=== PATIENT | male | born 1965 | race Caucasian/White ===

== ENCOUNTER 2019-02-28 14:45 | Inpatient (IN) | payer BC ==
[2019-02-28 15:26] LABS: #Basophils 0.1 thou/uL (0.0-0.2); #Eosinphils 0.3 thou/uL (0.0-0.7); #Lymphocytes 2.5 thou/uL (1.20-3.40); #Monocytes 0.5 thou/uL (0.11-0.59); #Neutrophils 7.2 thou/uL (1.40-6.50); %Basophils 0.5 % (0.0-1.0); %Eosinophils 2.5 % (0.0-10.0); %Lymphocytes 23.8 % (21.0-51.0); %Monocytes 4.9 % (0.0-10.0); %Neutrophils 68.2 % (42.0-75.0); Hemoglobin 14.4 g/dL (14.0-18.0); Mean Corpuscular HGB CONC 33.8 g/dL (32.0-36.0); Mean Corpuscular Hemoglobin 29.8 pg (27.0-31.0); Mean Corpuscular Volume 88.1 fL (78.0-98.0); Mean Platelet Volume 7.4 fL (7.4-10.4); Platelet Count 265 thou/uL (130-400); RBC Distribution Width 12.7 % (11.5-14.5); Red Blood Cell (RBC) Count 4.85 mill/uL (4.70-6.10); White Blood Cell (WBC) Count 10.5 thou/uL (4.8-10.8)
--- NOTE | 2019-02-28 15:40 | RAD ---
PORTABLE CHEST 1 VIEW: Date: 02/28/19 Time: 1446 hours HISTORY: Chest pain. FINDINGS/IMPRESSION: Comparison made with exam of 12/09/12. The heart size is borderline. The aorta is tortuous. The lungs are expanded without lobar consolidati on, pneumothoraces, radames pulmonary edema, or pleural effusions. POS: TPC
[2019-02-28 15:52] LABS: ALT (SGPT) 71 U/L (8-55); AST (SGOT) 52 U/L (5-34); Albumin 4.3 g/dL (3.5-5.0); Alkaline Phosphatase 79 U/L (40-150); Anion Gap 12 mmol/L (10-20); BUN (Urea Nitrogen) 12 mg/dL (8.4-25.7); Bilirubin, Total 0.8 mg/dL (0.2-1.2); CK (CPK) 121 U/L (30-200); Calc. Creatinine Clearance 0 mL/min (70-130); Calcium 8.9 mg/dL (7.8-10.44); Carbon Dioxide 26 mmol/L (22-29); Chloride 106 mmol/L (98-107); Estimated GFR-MDRD 67; Glucose 121 mg/dL (70-105); Lipase 26 U/L (8-78); Protein, Total 7.3 g/dL (6.0-8.3); Sodium 140 mmol/L (136-145)
[2019-02-28] MEDS ORDERED: Nitroglycerin 2% Ointment 1 INCH/1 GM Packet ONE (16:01)
[2019-02-28] MEDS ORDERED: Aspirin Chewable 81 MG TAB ONE (16:01)
[2019-02-28 16:17] LABS: CKMB 1.1 ng/mL (0-6.6)
[2019-02-28 16:31] LABS: PTT 32.8 SEC (22.9-36.1); Prothrombin Time 13.7 SEC (12.0-14.7)
[2019-02-28] MEDS ORDERED: Enoxaparin Sodium 60 MG/0.6 ML SYRINGE ONE (17:06)
[2019-02-28] MEDS ORDERED: Ondansetron ODT 4 MG TAB SL PRN (17:46)
[2019-02-28] MEDS ORDERED: Ondansetron PF 4 MG/2 ML Vial IVP PRN (17:46)
[2019-02-28 18:00] VITALS: BMI 36.1
[2019-02-28] MEDS ORDERED: Communication Order-Pharmacy FS SCH (18:00)
[2019-02-28] MEDS ORDERED: Diazepam 5 MG TAB PO SCH (18:00)
[2019-02-28] MEDS: Sodium Chloride 0.9% 1,000 ML IV SCH (18:24)
--- NOTE | 2019-02-28 18:38 | CON ---
DATE OF CONSULTATION: REASON FOR CONSULTATION: Chest pain. HISTORY OF PRESENT ILLNESS: Mr. Bright is a 54-year-old gentleman, who I saw and evaluated in the office yesterday. He states he was having a chest pain that has been ongoing for the last 8 days. The pain waxed and waned. His EKG suggested ischemia versus LVH. Recommended CK troponin yesterday. It was not drawn until today. CK-MB and troponin suggested an event likely occurring on Tuesday or Tuesday last week. His CK-MB was normal with mildly elevated troponin of 0.3. He is currently feeling well. Other concerns with Mr. Bright is a murmur of unknown etiology. He states he has had a chronic murmur in the past. He had a decreased carotid upstroke suggesting aortic stenosis. PAST MEDICAL HISTORY: Hypertension, aortic sclerosis? Stenosis, obstructive sleep apnea. MEDICATIONS: Include Zestril. PAST SURGICAL HISTORY: None. FAMILY HISTORY: Negative. SOCIAL HISTORY: Negative tobacco use. ALLERGIES: INCLUDE SNOW INHIBITOR THERAPY. REVIEW OF SYSTEMS: A 10-point review of systems is reviewed as above, otherwise negative. PHYSICAL EXAMINATION: GENERAL: Patient is a pleasant male, who is in no acute distress. The patient appears their stated age. VITAL SIGNS: Blood pressure 112/72, pulse 92, temperature afebrile. NEUROLOGIC: The patient is alert and oriented x3 with no focal neurologic deficits. HEENT: Sclerae without icterus. Mouth has moist mucous membranes with normal pallor. NECK: No JVD. Carotid upstroke brisk. No bruits bilaterally. LUNGS: Clear to auscultation with unlabored respirations. BACK: No scoliosis or kyphosis. CARDIAC: Regular rate and rhythm with normal S1 and S2. No S3 or S4 noted. No significant rubs, murmurs, thrills, or gallops noted throughout the precordium. PMI is not displaced. There is no parasternal heave. ABDOMEN: Soft, nontender, nondistended. No peritoneal signs present. No hepatosplenomegaly. No abnormal striae. EXTREMITIES: 2+ femoral and 2+ dorsalis pedis pulses. No cyanosis, clubbing, or edema. SKIN: No gross abnormalities. PERTINENT LABORATORY DATA: Hemoglobin 14.3. Troponin as above. AST/ALT 52/71. IMPRESSION: 1. Type 1 myocardial infarction. 2. Hypertension. RECOMMENDATIONS: Mr. Bright's event likely occurred on Tuesday of last week. His troponin is elevated with a normal CK-MB. At this point, he has no current symptoms. I would recommend Lovenox 1 mg/kg subcu q.12. We will keep n.p.o. after midnight and proceed with coronary angiography and possible PCI. I discussed the procedure in full detail with Mr. Bright. Risks included, but not limited . All questions were answered. He does have a murmur of unknown etiology. Recommended echo with doppler prior to angio to assess for aortic stenosis. That may change the course of action based on his coronary anatomy. I discussed drug-coated versus [id number] stent placement. There are no contraindications to proceed if needed. Job ID: [id number]
[2019-02-28 20:24] LABS: Troponin I 0.292 ng/mL (< 0.028)
[2019-02-28] MEDS ORDERED: Acetaminophen 325 MG TAB PO PRN (22:41)
[2019-02-28] MEDS ORDERED: Nitroglycerin 0.4 MG TAB (25 Tab Bottle) SL PRN (22:43)
[2019-03-01 00:47] LABS: Troponin I 0.325 ng/mL (< 0.028)
[2019-03-01] MEDS: Sodium Chloride 0.9% 1,000 ML IV SCH ×5 (02:11→22:49)
--- NOTE | 2019-03-01 03:09 | HP ---
CHIEF COMPLAINT: Chest pain. HISTORY OF PRESENT ILLNESS: This patient is a 54-year-old male who is followed by Dr. Parker who has been experiencing chest pain over the last 8-9 days. He describes these as sharp and central. They are intermittent and at most, lasts for 5-6 minutes. They are worse with activity and tend to resolve with rest. He is short of breath whenever these occur and he is slightly lightheaded. He has no nausea or radiation. REVIEW OF SYSTEMS: The patient reports that the pain is severe in the chest. Otherwise, all systems reviewed and all pertinent positives and negatives noted in the history of present illness. PAST MEDICAL HISTORY: Notable for some allergic rhinitis and obstructive sleep apnea, on CPAP. PAST SURGICAL HISTORY: None. FAMILY HISTORY: Mother and father both had pacemakers. SOCIAL HISTORY: The patient is a nonsmoker, but he does dip snuff. He is a nondrug user and only drinks minimally socially on the weekends. He is . He is full code. CURRENT MEDICATIONS: None. ALLERGIES: NONE. PHYSICAL EXAMINATION: VITAL SIGNS: Temperature 98.7, pulse 95, respirations 18, O2 saturation 95% on room air, BP 111/63. GENERAL APPEARANCE: Age-appropriate male, morbidly obese, in no distress. HEENT: PERRL. No OP lesions. Has cranials of snuff still in his mouth at this time, has a small oral airway and a large neck. HEART: Regular rate and rhythm. There is a 2/6 murmur at the left upper sternal border that is heard largely throughout the precordium. LUNGS: Clear to auscultation bilaterally with good chest wall expansion and air exchange. ABDOMEN: Soft, nontender, and nondistended. Positive bowel sounds. No masses. No organomegaly. EXTREMITIES: No cyanosis, clubbing, or edema. LABORATORY DATA: White count 10.5, hemoglobin 14.4, platelets 265. INR 1.0. Sodium 140, potassium 4.0, chloride 106, CO2 is 26, BUN 12, creatinine 1.14, glucose 121, AST 52, ALT 71. Troponin 0.324, subsequent 0.292. CK is normal. Lipase 26. Chest x-ray, heart is borderline size, otherwise unremarkable. IMPRESSION AND PLAN: 1. Chest pain with elevated troponin consistent with [id number] elevation myocardial infarction type 1. Cardiology has been consulted and plan to pursue heart catheterization in the morning. The patient's questions were answered regarding the plan and the procedure. 2. Obstructive sleep apnea, stable, chronic. We will need to continue CPAP usage. 3. Allergic rhinitis. Can resume his antihistamine after his procedure. 4. Angina as above. We will give p.r.n. sublingual nitroglycerin. We will also check a hemoglobin A1c and lipid panel in the morning to continue to risk stratify. The patient is going to be on telemetry and we will continue to monitor the troponins as well. 5. Elevated liver enzymes, likely related to fatty liver in this particular patient due to his obesity, borderline blood sugars. 6. The patient appears to have chronic kidney disease stage 2. His GFR on this particular occasion is 67. His previous two going back to 2017 were 88 and 85. We will need to continue to monitor over time. 7. Undiagnosed heart murmur. The patient has echo cardiogram pending. Job ID: [id number]
[2019-03-01] MEDS ORDERED: Nitroglycerin 100MG/250ML BOT 250 ML ONE (06:43)
[2019-03-01] MEDS ORDERED: Verapamil 5 MG/2 ML VIAL ONE (06:43)
[2019-03-01] MEDS ORDERED: Heparin 10,000 UNITS/1 ML VIAL ONE (06:43)
[2019-03-01] MEDS ORDERED: Fentanyl 100 MCG/2 ML VIAL ONE (07:43)
[2019-03-01] MEDS ORDERED: Midazolam HCl 2 mg/2 ml Vial ONE (07:43)
[2019-03-01] MEDS ORDERED: Bisacodyl 10 MG SUPP PR PRN ×2 (07:51→16:59)
[2019-03-01] MEDS ORDERED: Diabetic Tussin 200 MG/10 ML UDCUP PO PRN ×2 (07:51→17:00)
[2019-03-01] MEDS ORDERED: Artificial Tears 18 DROP/0.9 ML EA EYE PRN ×2 (07:51→16:59)
[2019-03-01] MEDS ORDERED: Cepastat Lozenges 1 LOZ PO PRN ×2 (07:51→17:00)
[2019-03-01] MEDS ORDERED: Senokot S 8.6-50 MG TAB PO PRN ×2 (07:51→17:03)
[2019-03-01] MEDS ORDERED: Labetalol HCl 100 MG/20 ML VIAL SLOW IVP PRN (07:51)
[2019-03-01] MEDS ORDERED: Sodium Chloride 0.65% Nasal 44 ML BOT EA NARE PRN ×2 (07:51→17:03)
[2019-03-01] MEDS ORDERED: Zolpidem Tartrate 5 MG TAB PO PRN ×2 (07:51→17:03)
[2019-03-01] MEDS ORDERED: Loratadine 10 MG TAB PO PRN ×2 (07:51→17:01)
[2019-03-01] MEDS ORDERED: Eucerin (Mineral Oil/Petrolatum,White) 30 gm Jar TOP PRN ×2 (07:51→17:01)
[2019-03-01] MEDS ORDERED: Ondansetron PF 4 MG/2 ML Vial IVP PRN ×2 (07:51→17:02)
[2019-03-01] MEDS ORDERED: Loperamide HCl 2 MG CAP PO PRN ×2 (07:51→17:01)
[2019-03-01] MEDS ORDERED: Ondansetron ODT 4 MG TAB PO PRN ×2 (07:51→17:02)
[2019-03-01] MEDS ORDERED: Furosemide 40 MG/4 ML VIAL ONE ×2 (08:13→12:14)
[2019-03-01] MEDS ORDERED: Aspirin 325 MG TAB PO SCH (09:00)
[2019-03-01] MEDS ORDERED: Aspirin Chewable 81 MG TAB PO SCH (09:00)
[2019-03-01] MEDS: Metoprolol Tartrate 25 MG TAB PO SCH ×2 (09:37→20:53)
[2019-03-01 09:46] LABS: Hemoglobin A1c 5.3 % (4.0-6.0)
[2019-03-01] MEDS ORDERED: Iopamidol 370 76% 100 ML VIAL ONE (09:52)
[2019-03-01 10:00] LABS: Cardiac Risk 4.7 (Less than 4.5)
--- NOTE | 2019-03-01 11:43 | PDOC.PN ---
- Subjective Encounter Start Date: 03/01/19 Encounter Start Time: 09:00 -: old records requested/rev Patient seen and examined. No new complaints. No overnight events he had cardiac cath this morning - Objective Resuscitation Status - Order Detail: 02/28/19 22:41 Resuscitation Status Routine Resuscitation Status: FULL: Full Resuscitation MAR Reviewed: Yes Vital Signs & Weight: Vital Signs (12 hours) Temp Pulse Resp BP Pulse Ox 03/01/19 10:31 85 20 03/01/19 08:30 98.2 F 97 26 H 123/60 92 L 03/01/19 04:05 97.4 F L 83 20 117/74 93 L Weight Weight 266 lb 14.4 oz Result Diagrams: 02/28/19 15:18 02/28/19 15:18 Radiology Reviewed by me: Yes EKG Reviewed by me: Yes Phys Exam - Physical Examination Constitutional: NAD HEENT: PERRLA, moist MMs, sclera anicteric Neck: no JVD, supple Respiratory: no wheezing, no rales, no rhonchi Cardiovascular: RRR, no rub SM at aortic area Gastrointestinal: soft, non-tender, no distention, positive bowel sounds Musculoskeletal: no edema, pulses present Neurological: non-focal, normal sensation, moves all 4 limbs Lymphatic: no nodes Psychiatric: normal affect, A&O x 3 Skin: no rash, normal turgor Dx/Plan (1) NSTEMI (non-ST elevated myocardial infarction) Code(s): I21.4 - NON-ST ELEVATION (NSTEMI) MYOCARDIAL INFARCTION Status: Acute (2) Allergic rhinitis Code(s): J30.9 - ALLERGIC RHINITIS, UNSPECIFIED Status: Chronic (3) YASSINE (obstructive sleep apnea) Code(s): G47.33 - OBSTRUCTIVE SLEEP APNEA (ADULT) (PEDIATRIC) Status: Chronic (4) Obesity (BMI 30-39.9) Code(s): E66.9 - OBESITY, UNSPECIFIED Status: Chronic (5) Cardiac murmur Code(s): R01.1 - CARDIAC MURMUR, UNSPECIFIED Status: Acute (6) CAD (coronary artery disease) Code(s): I25.10 - ATHSCL HEART DISEASE OF [place] CORONARY ARTERY W/O ANG PCTRS Status: Acute - Plan cont current plan of care, plan discussed w/ family * echo result pending, suspecting * cath showed CAD, no intervention done * medication reviewed as below * symptomatic treatment * discussed with family bedside. * continue aspirin, metoprolol and lipitor Review of Systems - Review of Systems ENT: negative: Ear Pain, Ear Discharge, Nose Pain, Nose Discharge, Nose Congestion, Mouth Pain, Mouth Swelling, Throat Pain, Throat Swelling, Other Respiratory: negative: Cough, Dry, Shortness of Breath, Hemoptysis, SOB with Excertion, Pleuritic Pain, Sputum, Wheezing Cardiovascular: negative: chest pain, palpitations, orthopnea, paroxysmal nocturnal dyspnea, edema, light headedness, other Gastrointestinal: negative: Nausea, Vomiting, Abdominal Pain, Diarrhea, Constipation, Melena, Hematochezia, Other Genitourinary: negative: Dysuria, Frequency, Incontinence, Hematuria, Retention , Other Musculoskeletal: negative: Neck Pain, Shoulder Pain, Arm Pain, Back Pain, Hand Pain, Leg Pain, Foot Pain, Other - Medications/Allergies Allergies/Adverse Reactions: Allergies Allergy/AdvReac Type Severity Reaction Status Date / Time No Known Allergies Allergy Verified 02/28/19 18:03 Medications: Current Medications Acetaminophen (Tylenol) 650 mg PO Q4H PRN PRN Reason: Headache/Fever/Mild Pain (1-3) Albuterol/Ipratropium (Duoneb) 3 ml NEB [id number] [facility] Last Admin: 03/01/19 10:31 Dose: 3 ml Artificial Tears (Tears Naturale) 2 drop EA EYE PRN PRN PRN Reason: Dry Eyes Aspirin (Aspirin Chewable) 81 mg PO DAILY [facility] Last Admin: 03/01/19 09:38 Dose: 81 mg Atorvastatin Calcium (Lipitor) 40 mg PO HS [facility] Bisacodyl (Dulcolax) 10 mg ID DAILYPRN PRN PRN Reason: Constipation Diazepam (Valium) 5 mg PO WILLCALL [facility] Stop: 03/01/19 18:01 Guaifenesin (Robitussin Sf) 200 mg PO Q4H PRN PRN Reason: Cough Sodium Chloride (Normal Saline 0.9%) 1,000 mls @ 100 mls/hr IV .Q10H [facility] Last Admin: 03/01/19 05:29 Dose: Not Given Labetalol HCl (Normodyne) 20 mg SLOW IVP Q4H PRN PRN Reason: SBP > 180 and HR >/= 70 Loperamide HCl (Imodium) 2 mg PO PRN PRN PRN Reason: Diarrhea/Loose Stools Loratadine (Claritin) 10 mg PO DAILYPRN PRN PRN Reason: Sinus Symptoms Metoprolol Tartrate (Lopressor) 12.5 mg PO BID [facility] Last Admin: 03/01/19 09:37 Dose: 12.5 mg Mineral Oil/White Petrolatum (Eucerin Cream) 0 gm TOP BIDPRN PRN PRN Reason: Dry Skin Nitroglycerin (Nitrostat) 0.4 mg SL Q5MIN PRN PRN Reason: Chest Pain Ondansetron HCl (Zofran Odt) 4 mg PO Q6H PRN PRN Reason: Nausea/Vomiting Ondansetron HCl (Zofran) 4 mg IVP Q6H PRN PRN Reason: Nausea/Vomiting Senna/Docusate Sodium (Senokot S) 2 tab PO BID PRN PRN Reason: Constipation Sodium Chloride ([place] Nasal Berry 0.65%) 0 ml EA NARE QIDPRN PRN PRN Reason: Nasal Congestion Sodium Chloride (Flush - Normal Saline) 10 ml IVF Q12HR [facility] Last Admin: 03/01/19 09:38 Dose: 10 ml Sodium Chloride (Flush - Normal Saline) 10 ml IVF PRN PRN PRN Reason: Saline Flush Throat Lozenges (Cepastat Lozenges) 1 shakir PO Q2H PRN PRN Reason: Sore Throat Zolpidem Tartrate (Ambien) 5 mg PO HSPRN PRN PRN Reason: Insomnia
[2019-03-01] MEDS ORDERED: Communication Order-Pharmacy FS ONE (16:50)
[2019-03-01] MEDS ORDERED: Nitroglycerin 0.4 MG TAB (25 Tab Bottle) SL PRN (16:58)
[2019-03-01] MEDS ORDERED: Acetaminophen 325 MG TAB PO PRN (16:58)
[2019-03-01] MEDS ORDERED: Diazepam 5 MG TAB PO SCH (17:00)
--- NOTE | 2019-03-01 19:14 | EKG ---
Test Reason : POST CATH Blood Pressure : / mmHG Vent. Rate : 087 BPM Atrial Rate : 087 BPM P-R Int : 174 ms QRS Dur : 104 ms QT Int : 386 ms P-R-T Axes : 035 043 147 degrees QTc Int : 464 ms Normal sinus rhythm Nonspecific ST-T changes Poor anterior R wave progression Prolonged QT Abnormal ECG When compared with ECG of 28-FEB-2019 14:53, (Unconfirmed) T wave inversion now evident in Inferior leads Confirmed by DR. Steven BASHIR (3) on 03/01/2019 7:13:44 PM Referred By: CARLENE Confirmed By:DR. Steven BASHIR
[2019-03-01] MEDS ORDERED: Atorvastatin Calcium 40 MG TAB PO SCH ×2 (21:00)
--- NOTE | 2019-03-01 22:14 | CON ---
DATE OF CONSULTATION: HISTORY OF PRESENT ILLNESS: This is a 54-year-old, seen by Dr. Parker a couple of days ago in the office with chest pain, dyspnea, and an aortic valve stenosis murmur. It was recommended at that time that he obtain some blood work before leaving for home; however, the patient left the office and went home. He returned the next day to visit his brother who was in the hospital and while walking out from the parking lot, became dyspneic with chest pain and went to the emergency room. There, his troponin was 0.3. This morning, a cardiac echo was done showing critical aortic valve stenosis with a peak gradient in the mid 70s and a mean gradient in the mid 50s. Left ventricular systolic function was reduced at about 40%. Cardiac catheterization was done and unfortunately film was not great quality due to his size, but it was felt that he had a mid LAD lesion. He had a nondominant right system with a left PDA that appeared to have stenosis, although it did not appear to be a large enough vessel to graft in this gentleman with a weight of about 270 pounds and LVH. Aortic valve was calcified on catheterization and heavily sclerotic with immobile leaflets on echo. PAST MEDICAL HISTORY: Includes obstructive sleep apnea for which he uses CPAP. He does not take any other medicines. Does not see a doctor regularly. SOCIAL HISTORY: Dips snuff. He drinks beer on the weekends. He is . He has a daughter, but she does not live with him and she has 3 children herself. As mentioned, he is a nonsmoker. PAST SURGICAL HISTORY: Negative. 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 MEDICATIONS: Prior to admission, none. ALLERGIES: NONE. REVIEW OF SYSTEMS: The patient gets short of breath with minimal exertion. This is a long-standing problem. Denies swelling in his legs. No previous history of a TIA or stroke. He does admit that he is very unreliable with taking medications. PHYSICAL EXAMINATION: GENERAL: He is alert, somewhat slow gentleman with a recorded height of 6 feet, a recorded weight of 266 pounds. NECK: No carotid bruits. Due to his size, neck veins could not be evaluated. LUNGS: Clear to auscultation anteriorly and he was breathing comfortably. CARDIAC: Distant heart sounds with 2/6 systolic murmur. ABDOMEN: Obese, nontender. EXTREMITIES: No peripheral edema. He had palpable dorsalis pedis pulses bilaterally. DISCUSSION: I have discussed the situation with the patient and Dr. Parker. Even though he is 54 years old, I do not think he is a candidate for mechanical valve due to noncompliance issues. I have explained the options with the patient including a pig valve, which would be a better choice for someone who is not reliable with taking medications, but likely will need replacement or percutaneous valve in the future. Discussed the possibility of percutaneous valve and stenting of his LAD. However, Dr. Parker is concerned that he may not be reliable enough even to take his aspirin and Plavix for 6 months. Given all these issues, we will plan on a coronary artery bypass graft to his LAD as well as aortic valve replacement with a bioprosthetic valve tomorrow and informed consent has been obtained. Job ID: [id number]
[2019-03-02] MEDS ORDERED: Diltiazem 125 MG in Sodium Chloride 0.9% 100 ML IVPB SCH (03:15)
[2019-03-02] MEDS ORDERED: CEFAZOLIN 2 GM in Premix Bag 1 BAG IVPB SCH (03:15)
[2019-03-02 05:20] LABS: ALT (SGPT) 44 U/L (8-55); AST (SGOT) 18 U/L (5-34); Albumin 3.9 g/dL (3.5-5.0); Alkaline Phosphatase 61 U/L (40-150); Anion Gap 14 mmol/L (10-20); BUN (Urea Nitrogen) 9 mg/dL (8.4-25.7); Bilirubin, Total 1.1 mg/dL (0.2-1.2); Calc. Creatinine Clearance 157 mL/min (70-130); Calcium 8.6 mg/dL (7.8-10.44); Carbon Dioxide 22 mmol/L (22-29); Chloride 108 mmol/L (98-107); Estimated GFR-MDRD 85; Globulin 2.9 g/dL (2.4-3.5); Glucose 103 mg/dL (70-105); Potassium 3.7 mmol/L (3.5-5.1); Protein, Total 6.8 g/dL (6.0-8.3); Sodium 140 mmol/L (136-145)
[2019-03-02] MEDS: Metoprolol Tartrate 25 MG TAB PO SCH (05:38)
[2019-03-02 06:20] LABS: #Eosinphils 0.7 thou/uL (0.0-0.7); #Lymphocytes 2.5 thou/uL (1.20-3.40); #Monocytes 0.6 thou/uL (0.11-0.59); #Neutrophils 7.9 thou/uL (1.40-6.50); %Basophils 0.3 % (0.0-1.0); %Eosinophils 5.9 % (0.0-10.0); %Monocytes 5.1 % (0.0-10.0); %Neutrophils 67.7 % (42.0-75.0); Hemoglobin 14.6 g/dL (14.0-18.0); Mean Corpuscular HGB CONC 33.5 g/dL (32.0-36.0); Mean Corpuscular Hemoglobin 29.2 pg (27.0-31.0); Mean Corpuscular Volume 87.1 fL (78.0-98.0); Mean Platelet Volume 7.8 fL (7.4-10.4); Platelet Count 258 thou/uL (130-400); RBC Distribution Width 12.8 % (11.5-14.5); White Blood Cell (WBC) Count 11.7 thou/uL (4.8-10.8)
[2019-03-02] MEDS ORDERED: Fentanyl 100 MCG/2 ML VIAL ONE (06:30)
[2019-03-02] MEDS ORDERED: Midazolam HCl 2 mg/2 ml Vial ONE (06:30)
[2019-03-02] MEDS ORDERED: Vecuronium 10 MG VIAL ONE ×2 (06:31→10:37)
[2019-03-02] MEDS ORDERED: Midazolam HCl 5 mg/5 ml Vial ONE (06:31)
[2019-03-02] MEDS ORDERED: Dexmedetomidine 200 MCG/2 ML VIAL ONE (06:31)
[2019-03-02] MEDS ORDERED: Heparin 10,000 UNITS/1 ML VIAL 30,000 UNITS in Sodium Chloride 0.9% 1,000 ML FS SCH (06:45)
[2019-03-02 09:23] LABS: Bilirubin Negative (Negative); Blood, Urine Negative (Negative); Clarity CLEAR (Clear); Glucose, Urine (Dipstick) Negative (Negative); Leukocyte Negative (Negative); Nitrite Negative (Negative); Protein, Urine (Dipstick) 100 mg/dL (Neg-Trace); Specific Gravity, Urine 1.031 (1.002-1.036); pH, Urine 6.5 (5.0-9.0)
[2019-03-02 09:26] LABS: Bacteria/HPF None Seen HPF (None Seen); Pathc Cast-AUWi Flag 1.08 (0-2.49); RBC/HPF 0-3 HPF (0-3); WBC/HPF 0-3 HPF (0-3)
[2019-03-02 09:36] LABS: Hyaline Casts/LPF NONE SEEN LPF (0-3 Hyaline)
[2019-03-02 09:37] LABS: Crystals/HPF 1+ AMORPH URATES HPF (Negative); Renal Epithelial 0-3 HPF (0-3); Transitional Epithelial 0-3 HPF (0-3)
[2019-03-02] MEDS ORDERED: Albumin 5% 500 ML ONE (09:51)
[2019-03-02] MEDS ORDERED: Protamine Sulfate 250 MG/25 ML VIAL ONE (10:37)
[2019-03-02] MEDS ORDERED: Dexamethasone 20 MG/5 ML VIAL ONE (10:37)
[2019-03-02] MEDS ORDERED: Cardioplegic Soln 1,000 ML BAG ONE (10:37)
[2019-03-02] MEDS ORDERED: Thrombin 5000 UNITS/5 ML VIAL ONE (10:37)
[2019-03-02] MEDS ORDERED: Nitroglycerin 50 MG/250 ML BOT ONE (10:37)
[2019-03-02] MEDS ORDERED: Mannitol 12.5 GM/50 ML ONE (10:37)
[2019-03-02] MEDS ORDERED: Papaverine 60 MG/2 ML VIAL ONE (10:37)
[2019-03-02] MEDS ORDERED: Esmolol 100 MG/10 ML VIAL ONE (10:37)
[2019-03-02] MEDS ORDERED: Ketorolac Tromethamine 30 MG/ML VIAL ONE (10:37)
[2019-03-02] MEDS ORDERED: Glycopyrrolate 0.2 MG/ML 5 ML SYRINGE ONE (10:37)
[2019-03-02] MEDS ORDERED: Heparin 5,000 UNITS/ML VIAL ONE (10:37)
[2019-03-02] MEDS ORDERED: Aminocaproic Acid 5 GM/20 ML VIAL ONE (10:37)
[2019-03-02] MEDS ORDERED: EPINEPHrine 1 MG/ML AMP ONE (10:37)
[2019-03-02] MEDS ORDERED: PHENYLEPHRINE-NS 100 MCG/ML 10 ML SYRINGE ONE (10:37)
[2019-03-02] MEDS ORDERED: Ondansetron PF 4 MG/2 ML Vial ONE (10:37)
[2019-03-02] MEDS ORDERED: Magnesium 5 GM/10 ML VIAL ONE (10:37)
[2019-03-02] MEDS ORDERED: Heparin 30,000 units/30 ml VIAL ONE (10:37)
[2019-03-02] MEDS ORDERED: Lidocaine 2% PF 100 mg/5 ml Syringe ONE (10:37)
[2019-03-02] MEDS ORDERED: Potassium Chloride 60 MEQ/30 ML VIAL ONE (10:37)
[2019-03-02] MEDS ORDERED: Norepinephrine 4 MG/4 ML VIAL ONE (10:37)
[2019-03-02] MEDS ORDERED: Sodium Bicarb 50 MEQ/50 ML VIAL ONE (10:37)
[2019-03-02] MEDS ORDERED: Calcium Chloride 1 GM/10 ML Abboject SYRINGE ONE (10:37)
[2019-03-02] MEDS ORDERED: Milrinone 10 MG/10 ML VIAL ONE (11:13)
--- NOTE | 2019-03-02 11:45 | PDOC.PN ---
- Subjective Encounter Start Date: 03/02/19 Encounter Start Time: 14:52 last night pt had afib/flutter and cardizem was given, rate controlled, BP dropped so cardizem was dced. s/p surgery and now on bipap - Objective Resuscitation Status - Order Detail: 02/28/19 22:41 Resuscitation Status Routine Resuscitation Status: FULL: Full Resuscitation MAR Reviewed: Yes Vital Signs & Weight: Vital Signs (12 hours) Temp Pulse Resp BP Pulse Ox 03/02/19 05:52 94 L 03/02/19 04:08 97.9 F 89 16 108/66 92 L Weight Weight 266 lb 14.4 oz I&O: 03/01/19 03/02/19 03/03/19 06:59 06:59 06:59 Intake Total 4740 Output Total 6600 Balance -1860 Result Diagrams: 03/02/19 13:27 03/02/19 13:27 Radiology Reviewed by me: Yes EKG Reviewed by me: Yes Phys Exam - Physical Examination Constitutional: NAD on bipap HEENT: moist MMs, sclera anicteric Neck: no JVD, supple Respiratory: no wheezing, no rales, no rhonchi chest tube in place Cardiovascular: RRR, no significant murmur, no rub Gastrointestinal: soft, non-tender, no distention Musculoskeletal: no edema, pulses present Neurological: non-focal Lymphatic: no nodes Psychiatric: normal affect Skin: no rash, normal turgor Dx/Plan (1) NSTEMI (non-ST elevated myocardial infarction) Code(s): I21.4 - NON-ST ELEVATION (NSTEMI) MYOCARDIAL INFARCTION Status: Acute Comment: 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 (2) Allergic rhinitis Code(s): J30.9 - ALLERGIC RHINITIS, UNSPECIFIED Status: Chronic (3) YASSINE (obstructive sleep apnea) Code(s): G47.33 - OBSTRUCTIVE SLEEP APNEA (ADULT) (PEDIATRIC) Status: Chronic (4) Obesity (BMI 30-39.9) Code(s): E66.9 - OBESITY, UNSPECIFIED Status: Chronic (5) Cardiac murmur Code(s): R01.1 - CARDIAC MURMUR, UNSPECIFIED Status: Acute Comment: likely due to (6) CAD (coronary artery disease) Code(s): I25.10 - ATHSCL HEART DISEASE OF [place] CORONARY ARTERY W/O ANG PCTRS Status: Acute - Plan cont current plan of care * planned for AVR and CABG as per CV surgery and cardiology * medication reviewed as below * symptomatic treatment. * after surgery, continue protocol treatment Review of Systems - Review of Systems ENT: negative: Ear Pain, Ear Discharge, Nose Pain, Nose Discharge, Nose Congestion, Mouth Pain, Mouth Swelling, Throat Pain, Throat Swelling, Other Respiratory: negative: Cough, Dry, Shortness of Breath, Hemoptysis, SOB with Excertion, Pleuritic Pain, Sputum, Wheezing Gastrointestinal: negative: Nausea, Vomiting, Abdominal Pain, Diarrhea, Constipation, Melena, Hematochezia, Other Genitourinary: negative: Dysuria, Frequency, Incontinence, Hematuria, Retention , Other Musculoskeletal: negative: Neck Pain, Shoulder Pain, Arm Pain, Back Pain, Hand Pain, Leg Pain, Foot Pain, Other - Medications/Allergies Allergies/Adverse Reactions: Allergies Allergy/AdvReac Type Severity Reaction Status Date / Time No Known Allergies Allergy Verified 02/28/19 18:03 Medications: Current Medications Vancomycin HCl 2 gm/ Sodium (Chloride) 500 mls @ 250 mls/hr IVPB ONCALL-OR BRYAN Cefazolin Sodium/Dextrose 2 gm (/ Device) 50 mls @ 100 mls/hr IVPB ONCALL-OR BRYAN Heparin Sodium (Porcine) 30, (000 units/ Sodium Chloride) 1,003 mls @ 0 mls/hr FS WILLCALL [facility] Stop: 03/02/19 12:00 Labetalol HCl (Normodyne) 20 mg SLOW IVP Q4H PRN PRN Reason: SBP > 180 and HR >/= 70 Metoprolol Tartrate (Lopressor) 12.5 mg PO BID [facility] Last Admin: 03/02/19 05:38 Dose: 12.5 mg
[2019-03-02] MEDS ORDERED: Nitroglycerin 50 MG/250 ML BOT 250 ML IVPB PRN (12:56)
[2019-03-02] MEDS ORDERED: Guaifenesin DM 100-10/5 ML UDCUP PO PRN (12:56)
[2019-03-02] MEDS ORDERED: Promethazine HCl 25 MG/ML VIAL IM PRN (12:56)
[2019-03-02] MEDS ORDERED: Bisacodyl 5 MG TAB PO PRN (12:56)
[2019-03-02] MEDS ORDERED: Hetastarch 6% 500 ML 500 ML IVPB PRN (12:56)
[2019-03-02] MEDS ORDERED: Mag-Al 1200 mg/1200 mg/30 ML UDCUP PO PRN (12:56)
[2019-03-02] MEDS ORDERED: Post-Op Insulin Drip Protocol IVPB ONE (12:56)
[2019-03-02] MEDS ORDERED: Fentanyl 100 MCG/2 ML VIAL SLOW IVP PRN (12:56)
[2019-03-02] MEDS ORDERED: Ondansetron PF 4 MG/2 ML Vial IVP PRN (12:56)
[2019-03-02] MEDS ORDERED: Bisacodyl 10 MG SUPP PR PRN (12:56)
[2019-03-02] MEDS ORDERED: Norepinephrine 8 MG/0.9% NS 250 ML IVPB PRN (12:56)
[2019-03-02] MEDS ORDERED: Morphine 2 MG/ML SYRINGE SLOW IVP PRN (12:56)
[2019-03-02] MEDS ORDERED: DOPamine 400 MG/D5W 250 ML 250 ML IVPB PRN (12:56)
[2019-03-02] MEDS ORDERED: Acetaminophen 325 MG TAB PO PRN (12:56)
[2019-03-02] MEDS ORDERED: niCARdipine HCl 25 MG in Sodium Chloride 0.9% 250 ML 240 ML IVPB PRN (12:56)
[2019-03-02] MEDS ORDERED: Potassium Chloride 20 MEQ/100 ML PREMIX BAG IVPB PRN (12:56)
[2019-03-02] MEDS ORDERED: HUMULIN R 100 UNITS in Sodium Chloride 0.9% 100 ML IVPB SCH (12:58)
[2019-03-02] MEDS ORDERED: Dextrose 50% Abboject 50 ML SYRINGE SLOW IVP PRN (12:58)
[2019-03-02] MEDS ORDERED: Insulin Regular 300 UNITS/3 ML VIAL SC PRN (12:58)
[2019-03-02] MEDS ORDERED: Dextrose 5% in Water 1,000 ML IV PRN (12:58)
[2019-03-02] MEDS ORDERED: Magnesium 2 GM/50 ML 2 GM in Premix Bag 1 BAG IVPB SCH (13:15)
[2019-03-02 13:32] LABS: Actual Bicarbonate (HCO3a) 21.2 mEq/L (22-28); Base Excess (BEa) -5.6 mEq/L (-2.0 to +3.0); CO2 Tension 46.3 mmHg (35.0-45.0); Calcium, Ionized 1.15 mmol/L (1.12-1.30); Carboxyhemoglobin (COHb) 1.4 gm% (0.0-3.0); Hemoglobin (Hb) 13.7 g/dL (14.0-18.0); Potassium - ABG Lab 4.27 mmol/L (3.70-5.30); pH, Arterial 7.28 (7.35-7.45)
--- NOTE | 2019-03-02 13:32 | RAD ---
EXAM: Portable supine chest: INDICATIONS: Postop sternotomy COMPARISON: 02/28/2019 FINDINGS: Cardiomegaly. Mild vascular congestion. Small effusions. Postop sternotomy wires. Central l ine overlies right atrium. IMPRESSION: Cardiomegaly with mild vascular congestion
[2019-03-02 13:34] LABS: Puncture Site LINE
[2019-03-02 13:35] LABS: ALV-art Gradient 281.925 (0-20)
[2019-03-02 13:40] LABS: INR-International Normal Ratio 1.5; PTT 31.7 SEC (22.9-36.1); Prothrombin Time 17.9 SEC (12.0-14.7)
[2019-03-02 13:41] LABS: Hemoglobin 13.4 g/dL (14.0-18.0); Mean Corpuscular HGB CONC 33.5 g/dL (32.0-36.0); Mean Corpuscular Hemoglobin 29.7 pg (27.0-31.0); Mean Corpuscular Volume 88.6 fL (78.0-98.0); Mean Platelet Volume 7.5 fL (7.4-10.4); Platelet Count 256 thou/uL (130-400); RBC Distribution Width 12.5 % (11.5-14.5); White Blood Cell (WBC) Count 31.3 thou/uL (4.8-10.8)
[2019-03-02 13:55] LABS: Anion Gap 11 mmol/L (10-20); BUN (Urea Nitrogen) 12 mg/dL (8.4-25.7); Calc. Creatinine Clearance 146 mL/min (70-130); Calcium 8.4 mg/dL (7.8-10.44); Carbon Dioxide 22 mmol/L (22-29); Chloride 113 mmol/L (98-107); Estimated GFR-MDRD 78; Glucose 171 mg/dL (70-105); Potassium 4.4 mmol/L (3.5-5.1); Sodium 142 mmol/L (136-145)
[2019-03-02 14:10] LABS: Band 35 % (5-11); Lymphocytes 6 % (21-51); MDiff Complete? YES; Monocytes 4 % (0-10); Neutrophil 55 % (42-75); Platelet Morphology Comment Appears Adequate; Polychromasia SLIGHT = 2-3 cells (100X) (0-2/hpf)
[2019-03-02] MEDS: Sodium Chloride 0.9% 1,000 ML IV SCH ×2 (14:19→20:42)
[2019-03-02] MEDS: CEFAZOLIN 2 GM in Premix Bag 1 BAG IVPB SCH ×2 (14:27→23:31)
[2019-03-02] MEDS: Fentanyl 100 MCG/2 ML VIAL SLOW IVP PRN ×2 (15:47→20:32)
[2019-03-02] MEDS: Ketorolac Tromethamine 30 MG/ML VIAL IVP SCH ×2 (17:29→23:31)
[2019-03-02 17:40] LABS: Hemoglobin 13.2 g/dL (14.0-18.0)
[2019-03-02 18:14] LABS: Potassium 4.5 mmol/L (3.5-5.1)
[2019-03-02] MEDS: Atorvastatin Calcium 10 MG TAB PO SCH (20:18)
[2019-03-02] MEDS: Vancomycin HCl 1 GM in Premix Bag 1 BAG IVPB SCH (20:18)
[2019-03-02] MEDS: Famotidine/PF 20 mg/2ml Vial SLOW IVP SCH (20:18)
[2019-03-03] MEDS: Fentanyl 100 MCG/2 ML VIAL SLOW IVP PRN ×4 (02:25→10:54)
[2019-03-03 04:49] LABS: #Lymphocytes 1.6 thou/uL (1.20-3.40); #Monocytes 1.1 thou/uL (0.11-0.59); %Basophils 0.1 % (0.0-1.0); %Eosinophils 0.3 % (0.0-10.0); %Lymphocytes 10.8 % (21.0-51.0); %Monocytes 7.4 % (0.0-10.0); %Neutrophils 81.4 % (42.0-75.0); Hemoglobin 11.8 g/dL (14.0-18.0); Mean Corpuscular Hemoglobin 29.5 pg (27.0-31.0); Mean Corpuscular Volume 89.4 fL (78.0-98.0); Mean Platelet Volume 8.1 fL (7.4-10.4); Platelet Count 203 thou/uL (130-400); RBC Distribution Width 12.6 % (11.5-14.5); White Blood Cell (WBC) Count 14.8 thou/uL (4.8-10.8)
[2019-03-03 05:04] LABS: Anion Gap 11 mmol/L (10-20); BUN (Urea Nitrogen) 12 mg/dL (8.4-25.7); Calc. Creatinine Clearance 183 mL/min (70-130); Calcium 7.8 mg/dL (7.8-10.44); Carbon Dioxide 23 mmol/L (22-29); Chloride 110 mmol/L (98-107); Estimated GFR-MDRD Greater than 90; Glucose 117 mg/dL (70-105); Potassium 4.4 mmol/L (3.5-5.1); Sodium 140 mmol/L (136-145)
[2019-03-03] MEDS: Ketorolac Tromethamine 30 MG/ML VIAL IVP SCH ×4 (05:07→23:12)
[2019-03-03] MEDS: CEFAZOLIN 2 GM in Premix Bag 1 BAG IVPB SCH (06:21)
[2019-03-03] MEDS ORDERED: Furosemide 20 MG/2 ML VIAL SLOW IVP SCH (07:45)
[2019-03-03] MEDS: Vancomycin HCl 1 GM in Premix Bag 1 BAG IVPB SCH (07:51)
--- NOTE | 2019-03-03 08:14 | RAD ---
PORTABLE CHEST: HISTORY: Postop sternotomy followup. COMPARISON: 03/02/2019. FINDINGS: Cardiomegaly. Postop sternotomy change. Central line has tip overlying the right atrium. The lungs appear well aerated and clear. IMPRESSION: Cardiomegaly. No acute lung process. POS: OFF
[2019-03-03] MEDS: Aspirin 325 MG TAB PO SCH (08:43)
[2019-03-03] MEDS: Famotidine/PF 20 mg/2ml Vial SLOW IVP SCH ×2 (08:43→20:35)
[2019-03-03] MEDS: HYDROcodone/Acetaminophen 5/325 mg Tablet PO PRN ×2 (09:16→23:14)
--- NOTE | 2019-03-03 09:23 | CON ---
DATE OF CONSULTATION: 03/03/2019 CONSULTING PHYSICIAN: [facility]. REASON FOR CONSULTATION: Postoperative respiratory failure. HISTORY OF PRESENT ILLNESS: The patient is a 54-year-old male, who came into the hospital several days ago with chest pain and a murmur consistent with aortic stenosis. He underwent one-vessel CABG with aortic valve replacement yesterday by Dr. Adams. Afterwards, he has required BiPAP. He does wear BiPAP at home for management of his YASSINE. Currently, he does not have any complaints of shortness of breath and wants to go home. PAST MEDICAL HISTORY: YASSINE requiring CPAP. PAST SURGICAL HISTORY: None prior to yesterday. SOCIAL HISTORY: Dips snuff. Drinks beer on the weekends. Does not smoke. MEDICATIONS: Prior to admission, none. ALLERGIES: NONE. REVIEW OF SYSTEMS: Twelve-point review of systems is otherwise negative. PHYSICAL EXAMINATION: VITAL SIGNS: Temperature 98.8, pulse 80, blood pressure 124/79, and O2 saturation 96%. GENERAL: He is awake, alert, in no distress. HEENT: Unremarkable. NECK: No JVD. LUNGS: Clear, but diminished breath sounds throughout. CARDIAC: S1 and S2. Regular. ABDOMEN: Soft, nontender. He has mediastinal tubes protruding in midthoracic area. EXTREMITIES: No clubbing, cyanosis, or edema. NEUROLOGIC: Grossly intact throughout. LABORATORY DATA: White blood cell count 14.8, hematocrit 35.8, and platelet count 203. Sodium 140, potassium 4.4, BUN 12, creatinine 0.8, and glucose 117. ASSESSMENT: 1. Postop coronary artery bypass grafting. 2. Obstructive sleep apnea. PLAN: 1. Continue BiPAP as needed. 2. Otherwise, management per CV Surgery. I will be happy to follow with you. Job ID: [id number]
--- NOTE | 2019-03-03 09:57 | EKG ---
Test Reason : Blood Pressure : / mmHG Vent. Rate : 084 BPM Atrial Rate : 084 BPM P-R Int : 182 ms QRS Dur : 104 ms QT Int : 392 ms P-R-T Axes : 037 013 095 degrees QTc Int : 463 ms Normal sinus rhythm Possible Left atrial enlargement Anterior infarct , age undetermined Nonspecific ST-T changes Abnormal ECG When compared with ECG of 01-MAR-2019 09:11, Anterior infarct is now Present T wave inversion no longer evident in Inferior leads Nonspecific T wave abnormality has replaced inverted T waves in Lateral leads Confirmed by DR. Steven BASHIR (3) on 03/03/2019 9:57:31 AM Referred By: CARLENE Confirmed By:DR. Steven BASHIR
--- NOTE | 2019-03-03 11:01 | EKG ---
Test Reason : POST CABG Blood Pressure : / mmHG Vent. Rate : 089 BPM Atrial Rate : 089 BPM P-R Int : 160 ms QRS Dur : 096 ms QT Int : 420 ms P-R-T Axes : 043 032 057 degrees QTc Int : 511 ms Normal sinus rhythm Possible Left atrial enlargement Nonspecific ST abnormality Prolonged QT Abnormal ECG When compared with ECG of 02-MAR-2019 04:30, (Unconfirmed) ST now depressed in Lateral leads Confirmed by DR. Steven BASHIR (3) on 03/03/2019 11:01:05 AM Referred By: JUAN Confirmed By:DR. Steven BASHIR
--- NOTE | 2019-03-03 11:12 | PDOC.PN ---
- Subjective Encounter Start Date: 03/03/19 Encounter Start Time: 10:00 Patient seen and examined. No new complaints. No overnight events pt has surgical site pain - Objective Resuscitation Status - Order Detail: 02/28/19 22:41 Resuscitation Status Routine Resuscitation Status: FULL: Full Resuscitation MAR Reviewed: Yes Vital Signs & Weight: Vital Signs (12 hours) Pulse Resp Pulse Ox 03/03/19 08:31 94 L 03/03/19 08:30 88 28 H 03/03/19 07:27 97 03/03/19 01:56 79 94 L 03/03/19 01:54 94 L Weight Weight 272 lb 0.807 oz Most Recent Monitor Data Heart Rate from ECG 94 NIBP 129/70 NIBP BP-Mean 89 Respiration from ECG 30 SpO2 93 I&O: 03/02/19 03/03/19 03/04/19 06:59 06:59 06:59 Intake Total 4740 3743 120 Output Total 6600 1245 525 Balance -1860 2498 -405 Result Diagrams: 03/03/19 03:35 03/03/19 03:35 Additional Labs: Accuchecks 03/03/19 03/03/19 03/03/19 06:34 05:19 03:38 POC Glucose 100 99 120 H 03/03/19 03/03/19 03/02/19 01:39 00:32 23:35 POC Glucose 110 117 H 123 H 03/02/19 03/02/19 03/02/19 22:37 21:31 20:16 POC Glucose 137 H 146 H 132 H 03/02/19 03/02/19 03/02/19 17:28 17:00 15:39 POC Glucose 156 H 170 H 156 H Radiology Reviewed by me: Yes (chest xray reviewed) EKG Reviewed by me: Yes Phys Exam - Physical Examination Constitutional: NAD HEENT: PERRLA, moist MMs, sclera anicteric Neck: no JVD, supple Respiratory: no wheezing, no rales, no rhonchi Cardiovascular: RRR, no rub Gastrointestinal: soft, non-tender, no distention, positive bowel sounds Musculoskeletal: no edema, pulses present Neurological: moves all 4 limbs Lymphatic: no nodes Psychiatric: normal affect Skin: no rash, normal turgor Dx/Plan (1) NSTEMI (non-ST elevated myocardial infarction) Code(s): I21.4 - NON-ST ELEVATION (NSTEMI) MYOCARDIAL INFARCTION Status: Acute Comment: 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 (2) Allergic rhinitis Code(s): J30.9 - ALLERGIC RHINITIS, UNSPECIFIED Status: Chronic (3) YASSINE (obstructive sleep apnea) Code(s): G47.33 - OBSTRUCTIVE SLEEP APNEA (ADULT) (PEDIATRIC) Status: Chronic (4) Obesity (BMI 30-39.9) Code(s): E66.9 - OBESITY, UNSPECIFIED Status: Chronic (5) Cardiac murmur Code(s): R01.1 - CARDIAC MURMUR, UNSPECIFIED Status: Acute Comment: likely due to (6) CAD (coronary artery disease) Code(s): I25.10 - ATHSCL HEART DISEASE OF [place] CORONARY ARTERY W/O ANG PCTRS Status: Acute (7) S/P CABG (coronary artery bypass graft) Code(s): Z95.1 - PRESENCE OF AORTOCORONARY BYPASS GRAFT Status: Acute (8) S/P aortic valve replacement Code(s): Z95.2 - PRESENCE OF PROSTHETIC HEART VALVE Status: Acute - Plan cont current plan of care * medication reviewed as below * symptomatic treatment * continue post operative care as per surgeon. Review of Systems - Review of Systems Respiratory: negative: Cough, Dry, Shortness of Breath, Hemoptysis, SOB with Excertion, Pleuritic Pain, Sputum, Wheezing Cardiovascular: negative: chest pain, palpitations, orthopnea, paroxysmal nocturnal dyspnea, edema, light headedness, other Gastrointestinal: negative: Nausea, Vomiting, Abdominal Pain, Diarrhea, Constipation, Melena, Hematochezia, Other Genitourinary: negative: Dysuria, Frequency, Incontinence, Hematuria, Retention , Other Musculoskeletal: negative: Neck Pain, Shoulder Pain, Arm Pain, Back Pain, Hand Pain, Leg Pain, Foot Pain, Other Skin: negative: Rash, Lesions, Domingo, Bruising, Other - Medications/Allergies Allergies/Adverse Reactions: Allergies Allergy/AdvReac Type Severity Reaction Status Date / Time No Known Allergies Allergy Verified 02/28/19 18:03 Medications: Current Medications Acetaminophen (Tylenol) 650 mg PO Q6H PRN PRN Reason: Headache/Fever Or Mild Pain Hydrocodone Bitart/Acetaminophen ([place] 5/325) 1 tab PO Q4H PRN PRN Reason: Moderate Pain (4-6) Hydrocodone Bitart/Acetaminophen ([place] 5/325) 2 tab PO Q4H PRN PRN Reason: Severe Pain (7-10) Last Admin: 03/03/19 09:16 Dose: 2 tab Al Hydroxide/Mg Hydroxide (Maalox) 30 ml PO Q4H PRN PRN Reason: Indigestion Albumin Human (Albumin 5%) 12.5 gm IVPB Q6H PRN PRN Reason: To Maintain SBP> 90 mmHG Stop: 03/03/19 12:57 Albumin Human (Albumin 5%) 25 gm IVPB Q6H PRN PRN Reason: To Maintain SBP > 90 mmHG Stop: 03/03/19 12:57 Albuterol/Ipratropium (Duoneb) 3 ml NEB [id number] PRN PRN Reason: SHORTNESS OF BREATH Albuterol/Ipratropium (Duoneb) 3 ml NEB [id number] [facility] Last Admin: 03/03/19 08:30 Dose: 3 ml Aspirin (Aspirin) 325 mg PO DAILY [facility] Last Admin: 03/03/19 08:43 Dose: 325 mg Atorvastatin Calcium (Lipitor) 10 mg PO HS [facility] Last Admin: 03/02/19 20:18 Dose: 10 mg Bisacodyl (Dulcolax) 10 mg PO Q12H PRN PRN Reason: Constipation Bisacodyl (Dulcolax) 10 mg OR Q12H PRN PRN Reason: Constipation Dextrose/Water (Dextrose 50%) 25 gm SLOW IVP PRN PRN PRN Reason: PER HYPOGLYCEMIC PROTOCOL Enoxaparin Sodium (Lovenox) 40 mg SC 2100 BRYAN Famotidine (Pepcid) 20 mg SLOW IVP Q12HR [facility] Last Admin: 03/03/19 08:43 Dose: 20 mg Fentanyl (Sublimaze) 25 mcg SLOW IVP Q2H PRN PRN Reason: Moderate Pain (4-6) Stop: 03/04/19 12:46 Fentanyl (Sublimaze) 50 mcg SLOW IVP Q2H PRN PRN Reason: Severe Pain (7-10) Stop: 03/04/19 12:46 Last Admin: 03/03/19 10:54 Dose: 50 mcg Glucagon (Glucagon) 1 mg SC PRN PRN PRN Reason: PER HYPOGLYCEMIC PROTOCOL Guaifenesin/Dextromethorphan (Robitussin Dm) 15 ml PO Q4H PRN PRN Reason: Cough Hydralazine HCl (Apresoline) 10 mg SLOW IVP Q6H PRN PRN Reason: To Maintain SBP< 140mmHG Dopamine HCl/Dextrose (Dopamine 400 Mg/D5w 250 Ml) 250 mls @ 0 mls/hr IVPB PRN PRN; Protocol PRN Reason: To maintain SBP > 90 mmHG Hetastarch/Sodium Chloride (Hespan) 500 mls @ 0 mls/hr IVPB PRN PRN PRN Reason: To Maintain SBP > 90mmHg Stop: 03/03/19 12:46 Norepinephrine Bitartrate (Levophed) 250 mls @ 0 mls/hr IVPB PRN PRN; Protocol PRN Reason: To maintain SBP > 90 mmHG Nicardipine HCl 25 mg/ Sodium (Chloride) 250 mls @ 0 mls/hr IVPB INF PRN; Protocol PRN Reason: To Maintain SBP< 140mmHG Nitroglycerin/Dextrose (Nitroglycerin 50 Mg/250 Ml Bot) 250 mls @ 0 mls/hr IVPB PRN PRN; Protocol PRN Reason: To Maintain SBP< 140mmHG Insulin Human Regular 100 (units/ Sodium Chloride) 101 mls @ 0 mls/hr IVPB INF BRYAN; Protocol Last Admin: 03/02/19 14:19 Dose: 101 mls Dextrose/Water (D5w) 1,000 mls @ 0 mls/hr IV INF PRN PRN Reason: PRN HYPOGLYCEMIC PROTOCOL Insulin Human Regular (Humulin R) 0 units SC Q4H PRN; Protocol PRN Reason: POST OP SLIDING SCALE Ketorolac Tromethamine (Toradol) 15 mg IVP Q6HR [facility] Stop: 03/05/19 18:01 Last Admin: 03/03/19 05:07 Dose: 15 mg Morphine Sulfate (Morphine) 2 mg SLOW IVP Q15MIN PRN PRN Reason: Severe Pain (7-10) Ondansetron HCl (Zofran) 4 mg IVP Q6H PRN PRN Reason: Nausea/Vomiting Potassium Chloride (Kcl) 20 meq IVPB PRN PRN PRN Reason: K level </= 4.0 Promethazine HCl (Phenergan) 6.25 mg IM Q4H PRN PRN Reason: Nausea/Vomiting Sodium Chloride (Flush - Normal Saline) 10 ml IVF Q12HR BRYAN Last Admin: 03/03/19 08:44 Dose: 10 ml Sodium Chloride (Flush - Normal Saline) 10 ml IVF PRN PRN PRN Reason: Saline Flush
--- NOTE | 2019-03-03 12:15 | PDOC.CTH ---
Cardiology Progress Note - Subjective No new issues. Sore chest. - Objective Vital Signs Pulse Resp Pulse Ox 03/03/19 12:00 93 L 03/03/19 08:31 94 L 03/03/19 08:30 88 28 H 03/03/19 07:27 97 03/03/19 01:56 79 94 L 03/03/19 01:54 94 L Weight 272 lb 0.807 oz 03/02/19 03/03/19 03/04/19 06:59 06:59 06:59 Intake Total 4740 3743 120 Output Total 6600 1245 745 Balance -1860 5958 -602 - Physical Examination General/Neuro: alert & oriented x3, NAD Neck: no JVD present Lungs: unlabored respirations Heart: RRR Abdomen: NT/ND Extremities: + edema B (1+) - Telemetry Telemetry Rhythm: NSR - Labs Result Diagrams: 03/03/19 03:35 03/03/19 03:35 Troponin/CKMB CK-MB (CK-2) 1.1 ng/mL (0-6.6) 02/28/19 15:18 Troponin I 0.325 ng/mL (< 0.028) H* 03/01/19 00:07 - Assessment/Plan 1. NSTEMI 2. S/P CABG NEGRON to LAD. 3. Aortic stenosis s/p AVR PLAN: - Aspirin/statin for life. - PT once tolerated. - BB and ACEI when BP allows.
[2019-03-03] MEDS: Amiodarone 450 MG, Admixture Fee 1 EACH in Dextrose 5% in Water 250 ML IVPB SCH ×2 (14:49→20:36)
[2019-03-03] MEDS: Atorvastatin Calcium 10 MG TAB PO SCH (20:34)
[2019-03-03] MEDS: Enoxaparin Sodium 40 MG/0.4 ML SYRINGE SC SCH (20:35)
[2019-03-04] MEDS ORDERED: Digoxin 0.5 MG/2 ML AMP SLOW IVP SCH ×2 (00:15→08:30)
[2019-03-04] MEDS ORDERED: Furosemide 40 MG/4 ML VIAL SLOW IVP SCH (00:15)
[2019-03-04 04:45] LABS: #Eosinphils 0.3 thou/uL (0.0-0.7); #Lymphocytes 2.8 thou/uL (1.20-3.40); #Monocytes 1.2 thou/uL (0.11-0.59); #Neutrophils 9.4 thou/uL (1.40-6.50); %Basophils 0.4 % (0.0-1.0); %Eosinophils 2.4 % (0.0-10.0); %Lymphocytes 20.5 % (21.0-51.0); %Monocytes 8.7 % (0.0-10.0); %Neutrophils 68.1 % (42.0-75.0); Hemoglobin 10.7 g/dL (14.0-18.0); Mean Corpuscular HGB CONC 32.8 g/dL (32.0-36.0); Mean Corpuscular Hemoglobin 29.3 pg (27.0-31.0); Mean Corpuscular Volume 89.4 fL (78.0-98.0); Mean Platelet Volume 7.7 fL (7.4-10.4); Platelet Count 187 thou/uL (130-400); RBC Distribution Width 12.6 % (11.5-14.5); Red Blood Cell (RBC) Count 3.67 mill/uL (4.70-6.10); White Blood Cell (WBC) Count 13.8 thou/uL (4.8-10.8)
[2019-03-04 05:04] LABS: Anion Gap 10 mmol/L (10-20); BUN (Urea Nitrogen) 14 mg/dL (8.4-25.7); Calc. Creatinine Clearance 152 mL/min (70-130); Calcium 7.8 mg/dL (7.8-10.44); Carbon Dioxide 27 mmol/L (22-29); Chloride 105 mmol/L (98-107); Estimated GFR-MDRD 80; Glucose 105 mg/dL (70-105); Potassium 3.9 mmol/L (3.5-5.1); Sodium 138 mmol/L (136-145)
[2019-03-04] MEDS: Ketorolac Tromethamine 30 MG/ML VIAL IVP SCH ×4 (06:00→23:07)
[2019-03-04] MEDS: Amiodarone 450 MG, Admixture Fee 1 EACH in Dextrose 5% in Water 250 ML IVPB SCH ×2 (06:35→21:17)
--- NOTE | 2019-03-04 07:59 | RAD ---
PORTABLE CHEST: HISTORY: Postop sternotomy. COMPARISON: 03/03/2019. FINDINGS: Cardiomegaly. Postop sternotomy wires. Mild vascular engorgement. Left basilar opacification obscu ring the left hemidiaphragm. Lungs are otherwise aerated and clear. IMPRESSION: No interval change from yesterday. POS: OFF
[2019-03-04] MEDS: HYDROcodone/Acetaminophen 5/325 mg Tablet PO PRN ×2 (08:55→18:42)
[2019-03-04] MEDS: Famotidine/PF 20 mg/2ml Vial SLOW IVP SCH ×2 (08:57→21:16)
[2019-03-04] MEDS: Aspirin 325 MG TAB PO SCH (08:59)
--- NOTE | 2019-03-04 09:21 | PRG ---
DATE OF SERVICE: 03/04/2019 SUBJECTIVE: He got in atrial fibrillation with rapid ventricular response. He is not having any breathing difficulty. He us using CPAP at night for YASSINE. OBJECTIVE: VITAL SIGNS: On exam, temperature is 99.3, pulse 133, blood pressure 126/47, and O2 saturation 93%. 24-hour intake 2128, output 2305. HEENT: Unremarkable. NECK: No JVD. LUNGS: Clear anteriorly. CARDIAC: S1 and S2, irregularly irregular and tachycardic. ABDOMEN: Soft, obese, and nontender. EXTREMITIES: No clubbing, cyanosis, or edema. LABORATORY DATA: White blood cell count 13.8, hematocrit 32.8, and platelet count 187. Sodium 138, potassium 3.9, chloride 105, CO2 of 27, BUN 14, creatinine 0.8, and glucose 105. IMAGING DATA: Chest x-ray is about the same. ASSESSMENT: 1. Postop coronary artery bypass grafting. 2. Obstructive sleep apnea. 3. Atrial fibrillation with rapid ventricular response. PLAN: There is some question whether the nebulization treatments might be aggravating the AFib. I think that those can be stopped. He will continue CPAP for the YASSINE. Cardiology is managing the AFib. Job ID: [id number]
--- NOTE | 2019-03-04 10:45 | PDOC.PN ---
- Subjective Encounter Start Date: 03/04/19 Encounter Start Time: 10:00 last night pt had afib with RVR, amiodaron drip was started, he also required bipap last night, this morning he was comfortable - Objective Resuscitation Status - Order Detail: 02/28/19 22:41 Resuscitation Status Routine Resuscitation Status: FULL: Full Resuscitation MAR Reviewed: Yes Vital Signs & Weight: Vital Signs (12 hours) Temp Pulse Resp Pulse Ox 03/04/19 08:49 126 H 03/04/19 08:06 96 03/04/19 08:05 126 H 24 H 97 03/04/19 04:00 99.1 F 03/04/19 02:00 99.0 F 03/04/19 01:55 94 L 03/04/19 01:53 94 L 03/04/19 00:23 88 03/04/19 00:00 100.2 F H 91 L Weight Weight 266 lb 1.567 oz Most Recent Monitor Data Heart Rate from ECG 153 NIBP 123/83 NIBP BP-Mean 96 Respiration from ECG 28 SpO2 96 I&O: 03/03/19 03/04/19 03/05/19 06:59 06:59 06:59 Intake Total 3743 2128 Output Total 1245 2305 30 Balance 2498 -177 -30 Result Diagrams: 03/04/19 04:30 03/04/19 03:30 Radiology Reviewed by me: Yes (chest xray reviewed) EKG Reviewed by me: Yes (afib with RVR) Phys Exam - Physical Examination Constitutional: NAD HEENT: PERRLA, moist MMs, sclera anicteric Neck: no JVD, supple central line+ Respiratory: no wheezing, no rhonchi reduced air entry, chest tube in place Cardiovascular: no significant murmur, irregular Gastrointestinal: soft, non-tender, no distention, positive bowel sounds arellano+ Musculoskeletal: no edema, pulses present Neurological: non-focal, normal sensation, moves all 4 limbs Lymphatic: no nodes Psychiatric: normal affect, A&O x 3 Skin: no rash, normal turgor Dx/Plan (1) NSTEMI (non-ST elevated myocardial infarction) Code(s): I21.4 - NON-ST ELEVATION (NSTEMI) MYOCARDIAL INFARCTION Status: Acute Comment: 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 (2) CAD (coronary artery disease) Code(s): I25.10 - ATHSCL HEART DISEASE OF [place] CORONARY ARTERY W/O ANG PCTRS Status: Acute (3) S/P CABG (coronary artery bypass graft) Code(s): Z95.1 - PRESENCE OF AORTOCORONARY BYPASS GRAFT Status: Acute (4) Aortic stenosis Code(s): I35.0 - NONRHEUMATIC AORTIC (VALVE) STENOSIS Status: Chronic (5) S/P aortic valve replacement Code(s): Z95.2 - PRESENCE OF PROSTHETIC HEART VALVE Status: Acute (6) Allergic rhinitis Code(s): J30.9 - ALLERGIC RHINITIS, UNSPECIFIED Status: Chronic (7) YASSINE (obstructive sleep apnea) Code(s): G47.33 - OBSTRUCTIVE SLEEP APNEA (ADULT) (PEDIATRIC) Status: Chronic (8) Obesity (BMI 30-39.9) Code(s): E66.9 - OBESITY, UNSPECIFIED Status: Chronic - Plan cont current plan of care * continue amiodaron drip as per cardiology * continue post cabg care as per CV surgery * medication reviewed as below * symptomatic treatment * will monitor in CCU. Review of Systems - Review of Systems ENT: negative: Ear Pain, Ear Discharge, Nose Pain, Nose Discharge, Nose Congestion, Mouth Pain, Mouth Swelling, Throat Pain, Throat Swelling, Other Respiratory: SOB with Excertion. negative: Cough, Dry, Shortness of Breath, Hemoptysis, Pleuritic Pain, Sputum, Wheezing Cardiovascular: negative: chest pain, palpitations, orthopnea, paroxysmal nocturnal dyspnea, edema, light headedness, other Gastrointestinal: negative: Nausea, Vomiting, Abdominal Pain, Diarrhea, Constipation, Melena, Hematochezia, Other Genitourinary: negative: Dysuria, Frequency, Incontinence, Hematuria, Retention , Other Musculoskeletal: negative: Neck Pain, Shoulder Pain, Arm Pain, Back Pain, Hand Pain, Leg Pain, Foot Pain, Other Skin: negative: Rash, Lesions, Domingo, Bruising, Other - Medications/Allergies Allergies/Adverse Reactions: Allergies Allergy/AdvReac Type Severity Reaction Status Date / Time No Known Allergies Allergy Verified 02/28/19 18:03 Medications: Current Medications Acetaminophen (Tylenol) 650 mg PO Q6H PRN PRN Reason: Headache/Fever Or Mild Pain Hydrocodone Bitart/Acetaminophen ([place] 5/325) 1 tab PO Q4H PRN PRN Reason: Moderate Pain (4-6) Last Admin: 03/04/19 08:55 Dose: 1 tab Hydrocodone Bitart/Acetaminophen ([place] 5/325) 2 tab PO Q4H PRN PRN Reason: Severe Pain (7-10) Last Admin: 03/03/19 23:14 Dose: 2 tab Al Hydroxide/Mg Hydroxide (Maalox) 30 ml PO Q4H PRN PRN Reason: Indigestion Albuterol/Ipratropium (Duoneb) 3 ml NEB [id number] PRN PRN Reason: SHORTNESS OF BREATH Aspirin (Aspirin) 325 mg PO DAILY [facility] Last Admin: 03/04/19 08:59 Dose: 325 mg Atorvastatin Calcium (Lipitor) 10 mg PO HS [facility] Last Admin: 03/03/19 20:34 Dose: 10 mg Bisacodyl (Dulcolax) 10 mg PO Q12H PRN PRN Reason: Constipation Bisacodyl (Dulcolax) 10 mg [place] Q12H PRN PRN Reason: Constipation Dextrose/Water (Dextrose 50%) 25 gm SLOW IVP PRN PRN PRN Reason: PER HYPOGLYCEMIC PROTOCOL Enoxaparin Sodium (Lovenox) 40 mg SC 2100 [facility] Last Admin: 03/03/19 20:35 Dose: 40 mg Famotidine (Pepcid) 20 mg SLOW IVP Q12HR [facility] Last Admin: 03/04/19 08:57 Dose: 20 mg Fentanyl (Sublimaze) 25 mcg SLOW IVP Q2H PRN PRN Reason: Moderate Pain (4-6) Stop: 03/04/19 12:46 Fentanyl (Sublimaze) 50 mcg SLOW IVP Q2H PRN PRN Reason: Severe Pain (7-10) Stop: 03/04/19 12:46 Last Admin: 03/03/19 10:54 Dose: 50 mcg Glucagon (Glucagon) 1 mg SC PRN PRN PRN Reason: PER HYPOGLYCEMIC PROTOCOL Guaifenesin/Dextromethorphan (Robitussin Dm) 15 ml PO Q4H PRN PRN Reason: Cough Hydralazine HCl (Apresoline) 10 mg SLOW IVP Q6H PRN PRN Reason: To Maintain SBP< 140mmHG Dopamine HCl/Dextrose (Dopamine 400 Mg/D5w 250 Ml) 250 mls @ 0 mls/hr IVPB PRN PRN; Protocol PRN Reason: To maintain SBP > 90 mmHG Norepinephrine Bitartrate (Levophed) 250 mls @ 0 mls/hr IVPB PRN PRN; Protocol PRN Reason: To maintain SBP > 90 mmHG Nicardipine HCl 25 mg/ Sodium (Chloride) 250 mls @ 0 mls/hr IVPB INF PRN; Protocol PRN Reason: To Maintain SBP< 140mmHG Nitroglycerin/Dextrose (Nitroglycerin 50 Mg/250 Ml Bot) 250 mls @ 0 mls/hr IVPB PRN PRN; Protocol PRN Reason: To Maintain SBP< 140mmHG Dextrose/Water (D5w) 1,000 mls @ 0 mls/hr IV INF PRN PRN Reason: PRN HYPOGLYCEMIC PROTOCOL Amiodarone HCl 450 mg/Miscellaneous Medication 1 each/ Dextrose/Water 259 mls @ 0 mls/hr IVPB INF BRYAN; Protocol Last Admin: 03/04/19 06:35 Dose: 259 mls Ketorolac Tromethamine (Toradol) 15 mg IVP Q6HR [facility] Stop: 03/05/19 18:01 Last Admin: 03/04/19 06:00 Dose: 15 mg Morphine Sulfate (Morphine) 2 mg SLOW IVP Q15MIN PRN PRN Reason: Severe Pain (7-10) Ondansetron HCl (Zofran) 4 mg IVP Q6H PRN PRN Reason: Nausea/Vomiting Potassium Chloride (Kcl) 20 meq IVPB PRN PRN PRN Reason: K level </= 4.0 Promethazine HCl (Phenergan) 6.25 mg IM Q4H PRN PRN Reason: Nausea/Vomiting Sodium Chloride (Flush - Normal Saline) 10 ml IVF Q12HR [facility] Last Admin: 03/03/19 20:35 Dose: 10 ml Sodium Chloride (Flush - Normal Saline) 10 ml IVF PRN PRN PRN Reason: Saline Flush
--- NOTE | 2019-03-04 15:11 | PDOC.CTH ---
Cardiology Progress Note - Subjective No new issues. Going in and out of afib. - Objective Vital Signs Temp Pulse Resp Pulse Ox 03/04/19 12:00 98.5 F 97 03/04/19 08:49 126 H 03/04/19 08:06 96 03/04/19 08:05 126 H 24 H 97 03/04/19 08:00 96 03/04/19 04:00 99.1 F Weight 266 lb 1.567 oz 03/03/19 03/04/19 03/05/19 06:59 06:59 06:59 Intake Total 3743 2128 Output Total 1245 2305 310 Balance 2498 -177 -310 - Physical Examination General/Neuro: alert & oriented x3, NAD Neck: no JVD present Lungs: CTA, unlabored respirations Heart: RRR Abdomen: NT/ND Extremities: + edema B (1+) - Telemetry Telemetry Rhythm: Afib ->NSR - Labs Result Diagrams: 03/04/19 04:30 03/04/19 03:30 Troponin/CKMB CK-MB (CK-2) 1.1 ng/mL (0-6.6) 02/28/19 15:18 Troponin I 0.325 ng/mL (< 0.028) H* 03/01/19 00:07 - Assessment/Plan 1. NSTEMI 2. S/P CABG NEGRON to LAD. 3. Aortic stenosis s/p AVR 4. Post op afib. PLAN: - Amiodarone drip. - Aspirin/statin for life. - PT once tolerated. - BB and ACEI when BP allows.
[2019-03-04] MEDS: Enoxaparin Sodium 40 MG/0.4 ML SYRINGE SC SCH (21:16)
[2019-03-04] MEDS: Atorvastatin Calcium 10 MG TAB PO SCH (21:16)
[2019-03-05 04:57] LABS: #Eosinphils 0.4 thou/uL (0.0-0.7); #Lymphocytes 1.8 thou/uL (1.20-3.40); #Monocytes 0.9 thou/uL (0.11-0.59); #Neutrophils 9.4 thou/uL (1.40-6.50); %Basophils 0.3 % (0.0-1.0); %Eosinophils 3.5 % (0.0-10.0); %Lymphocytes 14.4 % (21.0-51.0); %Monocytes 7.1 % (0.0-10.0); %Neutrophils 74.8 % (42.0-75.0); Hemoglobin 11.3 g/dL (14.0-18.0); Mean Corpuscular HGB CONC 32.9 g/dL (32.0-36.0); Mean Corpuscular Hemoglobin 29.2 pg (27.0-31.0); Mean Corpuscular Volume 88.9 fL (78.0-98.0); Mean Platelet Volume 7.6 fL (7.4-10.4); Platelet Count 231 thou/uL (130-400); RBC Distribution Width 12.4 % (11.5-14.5); Red Blood Cell (RBC) Count 3.88 mill/uL (4.70-6.10); White Blood Cell (WBC) Count 12.5 thou/uL (4.8-10.8)
[2019-03-05 05:15] LABS: Anion Gap 10 mmol/L (10-20); BUN (Urea Nitrogen) 16 mg/dL (8.4-25.7); Calc. Creatinine Clearance 174 mL/min (70-130); Calcium 8.2 mg/dL (7.8-10.44); Carbon Dioxide 27 mmol/L (22-29); Chloride 105 mmol/L (98-107); Estimated GFR-MDRD Greater than 90; Glucose 101 mg/dL (70-105); Potassium 4.1 mmol/L (3.5-5.1); Sodium 138 mmol/L (136-145)
[2019-03-05] MEDS: Ketorolac Tromethamine 30 MG/ML VIAL IVP SCH ×3 (05:25→17:36)
[2019-03-05] MEDS: hydrALAZINE 20 MG/ML VIAL SLOW IVP PRN ×2 (05:25→14:38)
[2019-03-05] MEDS ORDERED: Furosemide 40 MG TAB PO SCH (07:30)
--- NOTE | 2019-03-05 07:59 | RAD ---
CHEST 1 VIEW: Date: 03/05/19 INDICATION: Status post open heart surgery. COMPARISON: Prior exam dated 03/04/19. FINDINGS: There is a right subclavian central venous catheter. There is cardiomegaly and pulmonary vascular con gestion. There are small bilateral pleural effusions, left greater than right. No pneumothorax is marcel dent. IMPRESSION: Stable CHF or volume overload. POS: BH
[2019-03-05] MEDS ORDERED: Potassium Chloride 10 MEQ TAB PO SCH (08:00)
[2019-03-05] MEDS: Aspirin 325 MG TAB PO SCH (08:29)
[2019-03-05] MEDS: Lisinopril 5 MG TAB PO SCH ×2 (08:30→19:49)
[2019-03-05] MEDS: Famotidine/PF 20 mg/2ml Vial SLOW IVP SCH (08:30)
[2019-03-05] MEDS: HYDROcodone/Acetaminophen 5/325 mg Tablet PO PRN ×2 (08:55→17:38)
--- NOTE | 2019-03-05 08:56 | PRG ---
DATE OF SERVICE: 03/05/2019 SUBJECTIVE: The patient is feeling well. He wants to go home. OBJECTIVE: VITAL SIGNS: On exam, temperature is 99.7, pulse 75, blood pressure 153/76, and O2 saturation 94%. He is on amiodarone drip. HEENT: Unremarkable. NECK: No JVD. CHEST: Clear to auscultation anteriorly. CARDIAC: S1 and S2, regular. ABDOMEN: Soft and nontender. EXTREMITIES: No edema. IMAGING DATA: His chest x-ray shows stable findings compared to yesterday. LABORATORY DATA: White blood cell count 12.5, hematocrit 34.5, and platelet count 231. Sodium 138, potassium 4.1, chloride 105, CO2 of 27, BUN 16, creatinine 0.8, and glucose 101. ASSESSMENT: 1. Postoperative coronary artery bypass grafting. 2. Obstructive sleep apnea. 3. Atrial fibrillation with rapid ventricular response. PLAN: The patient will likely be transferred to the floor later today. Needs to start rehab. Continue nocturnal CPAP. Job ID: [id number]
--- NOTE | 2019-03-05 11:09 | OP ---
DATE OF PROCEDURE: 03/02/2019 PREOPERATIVE DIAGNOSES: Critical aortic stenosis, moderate coronary artery disease. PROCEDURES PERFORMED: Aortic valve replacement with a #25 Inspiris valve and coronary artery bypass graft, left anterior descending grafted with left internal mammary artery. DATA MANAGEMENT ENGINEER: Asad. TRANSFUSION: None. DESCRIPTION OF PROCEDURE: After adequate anesthesia had been obtained, the patient was prepped and draped. Midline sternotomy was performed. Following which, the left internal mammary artery was harvested, the patient heparinized. The mammary divided distally and passed posterior to the thymus gland and the pericardium incised. Pericardial traction sutures were placed and the aorta was cannulated around two pursestring sutures as was the right atrium around one pursestring suture. Cardiopulmonary bypass was begun, right superior pulmonary vein sump and retrograde coronary catheter placed. Following this, the heart was elevated and there was severe left ventricular hypertrophy. The LAD was identified. The aorta was then crossclamped and a liter of cold blood cardioplegia given through the aortic root, periodically venting the aorta. Following this, the NEGRON to LAD anastomosis was completed. The aorta was then opened with the aortotomy being slightly cephalad to the normal location for arteriotomy. A heavily calcified possibly bileaflet, although ther may have been a rudimentary third leaflet was excised using rongeurs to remove the calcification. The area was thoroughly irrigated and Sizer #25 fit. A 2-0 Ethibond mattress sutures were then placed with the pledgets deep to the anulus. The valve was then seated and core knots used to secure the sutures. The valve sat nicely in the aorta. It should be noted while the sutures were being placed through the valve. 300 mL of retrograde cardioplegia was given. The aortotomy was then closed with a double layer of Prolene suture. Following which air was vented through the vent needle and a sump. It should be noted that CO2 had been insufflated into the pericardial well during the case. Following a cross-clamping of the aorta, the patient began spontaneous rhythm. Temporary ventricular wires were placed, but not utilized. The sump was removed as was the retrograde catheter and both of the sites were hemostatic. Following this, the patient was weaned from cardiopulmonary bypass on two occasions having to go back on bypass within the first minute due to cardiac dysfunction. On the third attempt, the patient came off well. Transesophageal echo showed no paravalvular leak. With pressor support and Primacor, the patient's left ventricular systolic function was very good. Cannulas were removed and the aortic cannulation site was secured with a 4-0 Prolene suture. The vent needle site was secured with a 5-0 Prolene suture. After protamine administration, mediastinal drains x2 and a left pleural drain were placed. The sternum was then reapproximated with a combination of #7 interrupted wires and 3 zip ties. Vancomycin paste, platelet rich blood, and platelet poor plasma were utilized on closure and the patient's wound was then closed in layers. He is to be taken to the ICU in guarded condition. Job ID: [id number] [facility]
--- NOTE | 2019-03-05 11:14 | PDOC.PN ---
- Subjective Encounter Start Date: 03/05/19 Encounter Start Time: 09:30 Patient seen and examined. No new complaints. No overnight events - Objective Resuscitation Status - Order Detail: 02/28/19 22:41 Resuscitation Status Routine Resuscitation Status: FULL: Full Resuscitation MAR Reviewed: Yes Vital Signs & Weight: Vital Signs (12 hours) Temp Pulse BP Pulse Ox 03/05/19 08:30 82 167/106 H 03/05/19 08:00 96 03/05/19 07:00 99.5 F 03/05/19 05:25 82 167/106 H 03/05/19 04:00 98.4 F 03/05/19 00:02 95 Weight Weight 4.229 oz Most Recent Monitor Data Heart Rate from ECG 85 NIBP 153/93 NIBP BP-Mean 113 Respiration from ECG 22 SpO2 95 I&O: 03/04/19 03/05/19 03/06/19 06:59 06:59 06:59 Intake Total 2128 1447 Output Total 2305 955 300 Balance -177 492 -300 Result Diagrams: 03/05/19 04:25 03/05/19 04:25 Radiology Reviewed by me: Yes (chest xray reviewed) EKG Reviewed by me: Yes (nsr) Phys Exam - Physical Examination Constitutional: NAD HEENT: PERRLA, moist MMs, sclera anicteric Neck: no JVD, supple Respiratory: no wheezing, no rhonchi coarse sound Cardiovascular: RRR, no significant murmur, no rub surgical site with dressing Gastrointestinal: soft, non-tender, no distention, positive bowel sounds Musculoskeletal: no edema, pulses present Neurological: non-focal, normal sensation Lymphatic: no nodes Psychiatric: normal affect, A&O x 3 Skin: no rash, normal turgor Dx/Plan (1) NSTEMI (non-ST elevated myocardial infarction) Code(s): I21.4 - NON-ST ELEVATION (NSTEMI) MYOCARDIAL INFARCTION Status: Acute Comment: 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 (2) CAD (coronary artery disease) Code(s): I25.10 - ATHSCL HEART DISEASE OF [place] CORONARY ARTERY W/O ANG PCTRS Status: Acute (3) S/P CABG (coronary artery bypass graft) Code(s): Z95.1 - PRESENCE OF AORTOCORONARY BYPASS GRAFT Status: Acute (4) Aortic stenosis Code(s): I35.0 - NONRHEUMATIC AORTIC (VALVE) STENOSIS Status: Chronic (5) S/P aortic valve replacement Code(s): Z95.2 - PRESENCE OF PROSTHETIC HEART VALVE Status: Acute (6) Allergic rhinitis Code(s): J30.9 - ALLERGIC RHINITIS, UNSPECIFIED Status: Chronic (7) YASSINE (obstructive sleep apnea) Code(s): G47.33 - OBSTRUCTIVE SLEEP APNEA (ADULT) (PEDIATRIC) Status: Chronic (8) Obesity (BMI 30-39.9) Code(s): E66.9 - OBESITY, UNSPECIFIED Status: Chronic - Plan cont current plan of care * continue lasix * on amiodaron and pt converted to NSR * possible transfer to [facility] today * continue cardiac rehab * medication reviewed as below * symptomatic treatment. Review of Systems - Review of Systems ENT: negative: Ear Pain, Ear Discharge, Nose Pain, Nose Discharge, Nose Congestion, Mouth Pain, Mouth Swelling, Throat Pain, Throat Swelling, Other Respiratory: negative: Cough, Dry, Shortness of Breath, Hemoptysis, SOB with Excertion, Pleuritic Pain, Sputum, Wheezing Cardiovascular: negative: chest pain, palpitations, orthopnea, paroxysmal nocturnal dyspnea, edema, light headedness, other Gastrointestinal: negative: Nausea, Vomiting, Abdominal Pain, Diarrhea, Constipation, Melena, Hematochezia, Other Genitourinary: negative: Dysuria, Frequency, Incontinence, Hematuria, Retention , Other Musculoskeletal: negative: Neck Pain, Shoulder Pain, Arm Pain, Back Pain, Hand Pain, Leg Pain, Foot Pain, Other - Medications/Allergies Allergies/Adverse Reactions: Allergies Allergy/AdvReac Type Severity Reaction Status Date / Time No Known Allergies Allergy Verified 02/28/19 18:03 Medications: Current Medications Acetaminophen (Tylenol) 650 mg PO Q6H PRN PRN Reason: Headache/Fever Or Mild Pain Hydrocodone Bitart/Acetaminophen ([place] 5/325) 1 tab PO Q4H PRN PRN Reason: Moderate Pain (4-6) Last Admin: 03/05/19 08:55 Dose: 1 tab Hydrocodone Bitart/Acetaminophen ([place] 5/325) 2 tab PO Q4H PRN PRN Reason: Severe Pain (7-10) Last Admin: 03/03/19 23:14 Dose: 2 tab Al Hydroxide/Mg Hydroxide (Maalox) 30 ml PO Q4H PRN PRN Reason: Indigestion Albuterol/Ipratropium (Duoneb) 3 ml NEB [id number] PRN PRN Reason: SHORTNESS OF BREATH Aspirin (Aspirin) 325 mg PO DAILY [facility] Last Admin: 03/05/19 08:29 Dose: 325 mg Atorvastatin Calcium (Lipitor) 10 mg PO HS [facility] Last Admin: 03/04/19 21:16 Dose: 10 mg Bisacodyl (Dulcolax) 10 mg PO Q12H PRN PRN Reason: Constipation Bisacodyl (Dulcolax) 10 mg [place] Q12H PRN PRN Reason: Constipation Dextrose/Water (Dextrose 50%) 25 gm SLOW IVP PRN PRN PRN Reason: PER HYPOGLYCEMIC PROTOCOL Enoxaparin Sodium (Lovenox) 40 mg SC 2100 [facility] Last Admin: 03/04/19 21:16 Dose: 40 mg Famotidine (Pepcid) 20 mg SLOW IVP Q12HR [facility] Last Admin: 03/05/19 08:30 Dose: 20 mg Furosemide (Lasix) 40 mg PO DAILY-[facility] Last Admin: 03/05/19 08:27 Dose: 40 mg Furosemide (Lasix) 40 mg SLOW IVP 1130 [facility] Stop: 03/05/19 13:30 Glucagon (Glucagon) 1 mg SC PRN PRN PRN Reason: PER HYPOGLYCEMIC PROTOCOL Guaifenesin/Dextromethorphan (Robitussin Dm) 15 ml PO Q4H PRN PRN Reason: Cough Hydralazine HCl (Apresoline) 10 mg SLOW IVP Q6H PRN PRN Reason: To Maintain SBP< 140mmHG Last Admin: 03/05/19 05:25 Dose: 10 mg Dopamine HCl/Dextrose (Dopamine 400 Mg/D5w 250 Ml) 250 mls @ 0 mls/hr IVPB PRN PRN; Protocol PRN Reason: To maintain SBP > 90 mmHG Norepinephrine Bitartrate (Levophed) 250 mls @ 0 mls/hr IVPB PRN PRN; Protocol PRN Reason: To maintain SBP > 90 mmHG Nicardipine HCl 25 mg/ Sodium (Chloride) 250 mls @ 0 mls/hr IVPB INF PRN; Protocol PRN Reason: To Maintain SBP< 140mmHG Nitroglycerin/Dextrose (Nitroglycerin 50 Mg/250 Ml Bot) 250 mls @ 0 mls/hr IVPB PRN PRN; Protocol PRN Reason: To Maintain SBP< 140mmHG Dextrose/Water (D5w) 1,000 mls @ 0 mls/hr IV INF PRN PRN Reason: PRN HYPOGLYCEMIC PROTOCOL Amiodarone HCl 450 mg/Miscellaneous Medication 1 each/ Dextrose/Water 259 mls @ 0 mls/hr IVPB INF [facility]; Protocol Last Admin: 03/04/19 21:17 Dose: 259 mls Ketorolac Tromethamine (Toradol) 15 mg IVP Q6HR [facility] Stop: 03/05/19 18:01 Last Admin: 03/05/19 05:25 Dose: 15 mg Lisinopril (Zestril) 5 mg PO BID [facility] Last Admin: 03/05/19 08:30 Dose: 5 mg Morphine Sulfate (Morphine) 2 mg SLOW IVP Q15MIN PRN PRN Reason: Severe Pain (7-10) Ondansetron HCl (Zofran) 4 mg IVP Q6H PRN PRN Reason: Nausea/Vomiting Potassium Chloride (Kcl) 20 meq IVPB PRN PRN PRN Reason: K level </= 4.0 Potassium Chloride (Klor-Con 10) 10 meq PO QAM-WM [facility] Last Admin: 03/05/19 08:29 Dose: 10 meq Promethazine HCl (Phenergan) 6.25 mg IM Q4H PRN PRN Reason: Nausea/Vomiting Sodium Chloride (Flush - Normal Saline) 10 ml IVF Q12HR [facility] Last Admin: 03/04/19 21:17 Dose: 10 ml Sodium Chloride (Flush - Normal Saline) 10 ml IVF PRN PRN PRN Reason: Saline Flush
[2019-03-05 14:11] LABS: Actual Bicarbonate (HCO3a) 19.7 mEq/L (22-28); Analyzer IN Cardio OR; Base Excess (BEa) -4.8 mEq/L (-2.0 to +3.0); CO2 Tension 34.8 mmHg (35.0-45.0); Carboxyhemoglobin (COHb) 0.7 gm% (0.0-3.0); Hemoglobin (Hb) 12.9 g/dL (14.0-18.0); O2 Tension (PaO2) 137.2 mmHg (80.0-100.0); Potassium - ABG Lab 4.48 mmol/L (3.70-5.30); pH, Arterial 7.37 (7.35-7.45)
[2019-03-05 14:11] LABS: Actual Bicarbonate (HCO3a) 22.2 mEq/L (22-28); Analyzer IN Cardio OR; Base Excess (BEa) -3.1 mEq/L (-2.0 to +3.0); CO2 Tension 40.7 mmHg (35.0-45.0); Calcium, Ionized 1.16 mmol/L (1.12-1.30); Carboxyhemoglobin (COHb) 0.7 gm% (0.0-3.0); Hemoglobin (Hb) 11.4 g/dL (14.0-18.0); O2 Tension (PaO2) 166.4 mmHg (80.0-100.0); Potassium - ABG Lab 4.46 mmol/L (3.70-5.30); pH, Arterial 7.36 (7.35-7.45)
[2019-03-05 14:12] LABS: Actual Bicarbonate (HCO3a) 22.1 mEq/L (22-28); Analyzer IN Cardio OR; Base Excess (BEa) -2.2 mEq/L (-2.0 to +3.0); CO2 Tension 36.1 mmHg (35.0-45.0); Calcium, Ionized 0.91 mmol/L (1.12-1.30); Carboxyhemoglobin (COHb) 0.3 gm% (0.0-3.0); Hemoglobin (Hb) 10.5 g/dL (14.0-18.0); O2 Tension (PaO2) 439.6 mmHg (80.0-100.0); Potassium - ABG Lab 4.71 mmol/L (3.70-5.30); pH, Arterial 7.41 (7.35-7.45)
[2019-03-05 14:12] LABS: Actual Bicarbonate (HCO3v) 36 mEq/L (22-28); Analyzer IN Cardio OR; Base Excess 9.8 mEq/L (-2.0 to +3.0); Calcium, Ionized 0.82 mmol/L (1.16-1.32); Chloride (ABG LAB) 105 mmol/L (98-106); pH (venous) 7.42 (7.32-7.43)
[2019-03-05 14:12] LABS: Actual Bicarbonate (HCO3a) 26.4 mEq/L (22-28); Analyzer IN Cardio OR; Base Excess (BEa) 0.9 mEq/L (-2.0 to +3.0); CO2 Tension 46.1 mmHg (35.0-45.0); Calcium, Ionized 0.93 mmol/L (1.12-1.30); Carboxyhemoglobin (COHb) 0.6 gm% (0.0-3.0); Hemoglobin (Hb) 10.6 g/dL (14.0-18.0); O2 Tension (PaO2) 336.3 mmHg (80.0-100.0); Potassium - ABG Lab 5.38 mmol/L (3.70-5.30); pH, Arterial 7.38 (7.35-7.45)
[2019-03-05 14:13] LABS: Analyzer IN Cardio OR; Base Excess (BEa) -1.1 mEq/L (-2.0 to +3.0); CO2 Tension 36.3 mmHg (35.0-45.0); Calcium, Ionized 0.93 mmol/L (1.12-1.30); Carboxyhemoglobin (COHb) 0.7 gm% (0.0-3.0); Hemoglobin (Hb) 12.2 g/dL (14.0-18.0); O2 Tension (PaO2) 480.8 mmHg (80.0-100.0); Potassium - ABG Lab 4.11 mmol/L (3.70-5.30); pH, Arterial 7.42 (7.35-7.45)
[2019-03-05 14:13] LABS: Actual Bicarbonate (HCO3a) 22.1 mEq/L (22-28); Analyzer IN Cardio OR; Base Excess (BEa) -3.5 mEq/L (-2.0 to +3.0); CO2 Tension 42.1 mmHg (35.0-45.0); Calcium, Ionized 1.03 mmol/L (1.12-1.30); Hemoglobin (Hb) 13.5 g/dL (14.0-18.0); O2 Tension (PaO2) 280.1 mmHg (80.0-100.0); Potassium - ABG Lab 4.14 mmol/L (3.70-5.30); pH, Arterial 7.34 (7.35-7.45)
[2019-03-05 14:13] LABS: Actual Bicarbonate (HCO3a) 24.4 mEq/L (22-28); Analyzer IN Cardio OR; Base Excess (BEa) -1.4 mEq/L (-2.0 to +3.0); CO2 Tension 44.9 mmHg (35.0-45.0); Calcium, Ionized 1.05 mmol/L (1.12-1.30); Carboxyhemoglobin (COHb) 1.3 gm% (0.0-3.0); Hemoglobin (Hb) 13.7 g/dL (14.0-18.0); O2 Tension (PaO2) 335.1 mmHg (80.0-100.0); Potassium - ABG Lab 4.17 mmol/L (3.70-5.30); pH, Arterial 7.35 (7.35-7.45)
[2019-03-05 14:14] LABS: Puncture Site ALINE
[2019-03-05 14:14] LABS: Puncture Site ALINE
[2019-03-05 14:14] LABS: Puncture Site ALINE
[2019-03-05 14:15] LABS: Puncture Site ALINE
[2019-03-05 14:17] LABS: Puncture Site ALINE
[2019-03-05 14:17] LABS: Puncture Site ALINE
[2019-03-05 14:18] LABS: Puncture Site ALINE
[2019-03-05] MEDS ORDERED: Furosemide 40 MG/4 ML VIAL SLOW IVP SCH (16:45)
--- NOTE | 2019-03-05 17:06 | PDOC.CTH ---
Cardiology Progress Note - Subjective No new issues. Working with PT. - Objective Vital Signs Temp Pulse Pulse Pulse BP BP BP 03/05/19 14:38 82 167/106 H 03/05/19 14:05 87 89 135/84 156/76 H 03/05/19 08:30 82 167/106 H 03/05/19 08:00 03/05/19 07:00 99.5 F 03/05/19 05:25 82 167/106 H Pulse Ox 03/05/19 14:38 03/05/19 14:05 03/05/19 08:30 03/05/19 08:00 96 03/05/19 07:00 03/05/19 05:25 Weight 4.229 oz 03/04/19 03/05/19 03/06/19 06:59 06:59 06:59 Intake Total 2128 1447 490 Output Total 2305 955 1500 Balance -177 492 -1010 - Physical Examination General/Neuro: alert & oriented x3, NAD Neck: no JVD present Lungs: unlabored respirations Heart: RRR Abdomen: NT/ND Extremities: + edema B (1+) - Telemetry Telemetry Rhythm: NSR - Labs Result Diagrams: 03/05/19 04:25 03/05/19 04:25 Troponin/CKMB CK-MB (CK-2) 1.1 ng/mL (0-6.6) 02/28/19 15:18 Troponin I 0.325 ng/mL (< 0.028) H* 03/01/19 00:07 - Assessment/Plan 1. NSTEMI 2. S/P CABG NEGRON to LAD. 3. Aortic stenosis s/p AVR 4. Post op afib. PLAN: - Amiodarone drip. - Aspirin/statin for life. - PT once tolerated. - On ACEI, will start Coreg.
[2019-03-05] MEDS: Furosemide 40 MG/4 ML VIAL SLOW IVP SCH ×2 (17:34→17:35)
[2019-03-05] MEDS ORDERED: Mineral Oil ENEMA PR PRN (19:29)
[2019-03-05] MEDS ORDERED: Bisacodyl 10 MG SUPP PR PRN (19:29)
[2019-03-05] MEDS ORDERED: Guaifenesin DM 100-10/5 ML UDCUP PO PRN (19:29)
[2019-03-05] MEDS ORDERED: Fentanyl 100 MCG/2 ML VIAL SLOW IVP PRN ×2 (19:29)
[2019-03-05] MEDS ORDERED: Mag-Al 1200 mg/1200 mg/30 ML UDCUP PO PRN (19:29)
[2019-03-05] MEDS ORDERED: Nitroglycerin 0.4 MG TAB (25 Tab Bottle) SL PRN (19:29)
[2019-03-05] MEDS ORDERED: Bisacodyl 5 MG TAB PO PRN (19:29)
[2019-03-05] MEDS ORDERED: HYDROcodone/Acetaminophen 5/325 mg Tablet PO PRN ×2 (19:29)
[2019-03-05] MEDS ORDERED: Acetaminophen 325 MG TAB PO PRN (19:29)
[2019-03-05] MEDS ORDERED: Aspirin 325 mg Enteric Coated Tablet PO SCH (19:45)
[2019-03-05] MEDS: Famotidine 20 MG TAB PO SCH (19:49)
[2019-03-05] MEDS: Atorvastatin Calcium 10 MG TAB PO SCH (19:50)
[2019-03-05] MEDS: Enoxaparin Sodium 40 MG/0.4 ML SYRINGE SC SCH (19:50)
[2019-03-06] MEDS: Amiodarone 450 MG, Admixture Fee 1 EACH in Dextrose 5% in Water 250 ML IVPB SCH ×2 (04:06→20:40)
[2019-03-06 07:11] LABS: Anion Gap 16 mmol/L (10-20); BUN (Urea Nitrogen) 15 mg/dL (8.4-25.7); Calc. Creatinine Clearance 176 mL/min (70-130); Calcium 8.5 mg/dL (7.8-10.44); Carbon Dioxide 20 mmol/L (22-29); Chloride 106 mmol/L (98-107); Estimated GFR-MDRD Greater than 90; Glucose 89 mg/dL (70-105); Potassium 4.6 mmol/L (3.5-5.1); Sodium 137 mmol/L (136-145)
[2019-03-06] MEDS: Furosemide 40 MG TAB PO SCH (08:15)
[2019-03-06] MEDS: Lisinopril 5 MG TAB PO SCH ×2 (08:15→20:40)
[2019-03-06] MEDS: Carvedilol 3.125 MG TAB PO SCH ×2 (08:15→17:51)
[2019-03-06] MEDS: Potassium Chloride 10 MEQ TAB PO SCH (08:15)
[2019-03-06] MEDS: Polyethylene Glycol 3350 17 GM Packet PO SCH (08:16)
[2019-03-06] MEDS: Aspirin 325 mg Enteric Coated Tablet PO SCH (08:16)
[2019-03-06] MEDS: Famotidine 20 MG TAB PO SCH ×2 (08:16→20:40)
--- NOTE | 2019-03-06 12:07 | PDOC.PN ---
- Subjective Encounter Start Date: 03/06/19 Encounter Start Time: 07:30 Patient seen and examined. No new complaints. No overnight events - Objective Resuscitation Status - Order Detail: 02/28/19 22:41 Resuscitation Status Routine Resuscitation Status: FULL: Full Resuscitation MAR Reviewed: Yes Vital Signs & Weight: Vital Signs (12 hours) Temp Pulse Pulse Pulse Resp BP BP 03/06/19 08:57 86 78 139/79 152/100 H 03/06/19 08:15 81 03/06/19 06:55 97.7 F 81 19 03/06/19 03:08 85 03/06/19 02:52 97.8 F 81 19 BP Pulse Ox Pulse Ox Pulse Ox 03/06/19 08:57 96 96 03/06/19 08:15 03/06/19 06:55 181/91 H 97 03/06/19 03:08 157/85 H 03/06/19 02:52 173/94 H 97 Weight Weight 254 lb 3.2 oz Most Recent Monitor Data Heart Rate from ECG 82 NIBP 121/74 NIBP BP-Mean 89 Respiration from ECG 24 SpO2 94 I&O: 03/05/19 03/06/19 03/07/19 06:59 06:59 06:59 Intake Total 1447 1977.9 Output Total 955 4050 Balance 492 -6726.1 Result Diagrams: 03/05/19 04:25 03/06/19 06:08 Additional Labs: Accuchecks 03/02/19 03/02/19 03/02/19 12:55 11:52 10:37 POC Glucose 165 H 168 H 164 H 03/02/19 03/02/19 03/02/19 10:04 09:33 09:05 POC Glucose 152 H 156 H 152 H 03/02/19 08:11 POC Glucose 132 H Phys Exam - Physical Examination Constitutional: NAD HEENT: PERRLA, moist MMs, sclera anicteric Neck: no JVD, supple Respiratory: no wheezing, no rales, no rhonchi Cardiovascular: RRR, no significant murmur, no rub Gastrointestinal: soft, non-tender, no distention, positive bowel sounds Musculoskeletal: no edema, pulses present Neurological: non-focal, normal sensation, moves all 4 limbs Lymphatic: no nodes Psychiatric: normal affect, A&O x 3 Skin: no rash, normal turgor Dx/Plan (1) NSTEMI (non-ST elevated myocardial infarction) Code(s): I21.4 - NON-ST ELEVATION (NSTEMI) MYOCARDIAL INFARCTION Status: Acute Comment: 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 (2) CAD (coronary artery disease) Code(s): I25.10 - ATHSCL HEART DISEASE OF [place] CORONARY ARTERY W/O ANG PCTRS Status: Acute (3) S/P CABG (coronary artery bypass graft) Code(s): Z95.1 - PRESENCE OF AORTOCORONARY BYPASS GRAFT Status: Acute (4) Aortic stenosis Code(s): I35.0 - NONRHEUMATIC AORTIC (VALVE) STENOSIS Status: Chronic (5) S/P aortic valve replacement Code(s): Z95.2 - PRESENCE OF PROSTHETIC HEART VALVE Status: Acute (6) Allergic rhinitis Code(s): J30.9 - ALLERGIC RHINITIS, UNSPECIFIED Status: Chronic (7) YASSINE (obstructive sleep apnea) Code(s): G47.33 - OBSTRUCTIVE SLEEP APNEA (ADULT) (PEDIATRIC) Status: Chronic (8) Obesity (BMI 30-39.9) Code(s): E66.9 - OBESITY, UNSPECIFIED Status: Chronic (9) Atrial fibrillation with RVR Code(s): I48.91 - UNSPECIFIED ATRIAL FIBRILLATION Status: Acute Comment: post op PAF - Plan cont current plan of care * on amiodaron drip, cardiology to decide changing to PO * continue cardiac rehab * he is improving and recovering well after surgery * medication reviewed as below * symptomatic treatment. Review of Systems - Review of Systems ENT: negative: Ear Pain, Ear Discharge, Nose Pain, Nose Discharge, Nose Congestion, Mouth Pain, Mouth Swelling, Throat Pain, Throat Swelling, Other Respiratory: negative: Cough, Dry, Shortness of Breath, Hemoptysis, SOB with Excertion, Pleuritic Pain, Sputum, Wheezing Cardiovascular: negative: chest pain, palpitations, orthopnea, paroxysmal nocturnal dyspnea, edema, light headedness, other Gastrointestinal: negative: Nausea, Vomiting, Abdominal Pain, Diarrhea, Constipation, Melena, Hematochezia, Other Genitourinary: negative: Dysuria, Frequency, Incontinence, Hematuria, Retention , Other Musculoskeletal: negative: Neck Pain, Shoulder Pain, Arm Pain, Back Pain, Hand Pain, Leg Pain, Foot Pain, Other Skin: negative: Rash, Lesions, [place], Bruising, Other - Medications/Allergies Allergies/Adverse Reactions: Allergies Allergy/AdvReac Type Severity Reaction Status Date / Time No Known Allergies Allergy Verified 02/28/19 18:03 Medications: Current Medications Acetaminophen (Tylenol) 650 mg PO Q6H PRN PRN Reason: Headache/Fever or Pain Hydrocodone Bitart/Acetaminophen ([place] 5/325) 1 tab PO Q4H PRN PRN Reason: Moderate Pain (4-6) Hydrocodone Bitart/Acetaminophen ([place] 5/325) 2 tab PO Q4H PRN PRN Reason: Severe Pain (7-10) Al Hydroxide/Mg Hydroxide (Maalox) 30 ml PO Q4H PRN PRN Reason: Indigestion Albuterol/Ipratropium (Duoneb) 3 ml NEB [id number] PRN PRN Reason: Respiratory Distress Aspirin (Ecotrin) 325 mg PO DAILY [facility] Last Admin: 03/06/19 08:16 Dose: 325 mg Atorvastatin Calcium (Lipitor) [address] [facility] Last Admin: 03/05/19 19:50 Dose: 10 mg Bisacodyl (Dulcolax) 10 mg PO Q12H PRN PRN Reason: Constipation Bisacodyl (Dulcolax) 10 mg [place] Q12H PRN PRN Reason: Constipation Carvedilol (Coreg) 3.125 mg PO BID[facility] Last Admin: 03/06/19 08:15 Dose: 3.125 mg Enoxaparin Sodium (Lovenox) 40 mg SC 2100 [facility] Last Admin: 03/05/19 19:50 Dose: 40 mg Famotidine (Pepcid) 20 mg PO BID [facility] Last Admin: 03/06/19 08:16 Dose: 20 mg Fentanyl (Sublimaze) 25 mcg SLOW IVP Q2H PRN PRN Reason: Moderate breakthrough pain Fentanyl (Sublimaze) 50 mcg SLOW IVP Q2H PRN PRN Reason: Severe breakthrough pain Furosemide (Lasix) 80 mg PO DAILY [facility] Last Admin: 03/06/19 08:15 Dose: 80 mg Guaifenesin/Dextromethorphan (Robitussin Dm) 15 ml PO Q4H PRN PRN Reason: Cough Amiodarone HCl 450 mg/Miscellaneous Medication 1 each/ Dextrose/Water 259 mls @ 0 mls/hr IVPB INF [facility]; Protocol Last Admin: 03/06/19 04:06 Dose: 259 mls Lisinopril (Zestril) 5 mg PO BID [facility] Last Admin: 03/06/19 08:15 Dose: 5 mg Mineral Oil (Fleet Mineral Oil) 133 ml [place] DAILYPRN PRN PRN Reason: Constipation Nitroglycerin (Nitrostat) 0.4 mg SL Q5MIN PRN PRN Reason: Chest Pain Polyethylene Glycol (Miralax) 17 gm PO DAILY [facility] Last Admin: 03/06/19 08:16 Dose: 17 gm Potassium Chloride (Klor-Con 10) 10 meq PO QAM-WM [facility] Last Admin: 03/06/19 08:15 Dose: 10 meq
--- NOTE | 2019-03-06 17:38 | PDOC.CTH ---
Cardiology Progress Note - Subjective Doing well. Pt in SR over last two days. On IV amiodarone. - Objective Vital Signs Temp Pulse Pulse Pulse Resp BP BP 03/06/19 16:10 98.2 F 78 18 03/06/19 12:18 81 82 132/66 143/69 H 03/06/19 11:40 97.8 F 72 18 03/06/19 08:57 86 78 139/79 152/100 H 03/06/19 08:15 81 03/06/19 06:55 97.7 F 81 19 BP BP Pulse Ox Pulse Ox Pulse Ox 03/06/19 16:10 126/70 97 03/06/19 12:18 100 97 03/06/19 11:40 127/67 97 03/06/19 08:57 96 96 03/06/19 08:15 03/06/19 06:55 181/91 H 97 Weight 254 lb 3.2 oz 03/05/19 03/06/19 03/07/19 06:59 06:59 06:59 Intake Total 1447 1977.9 Output Total 955 4050 Balance 492 -2072.1 - Physical Examination General/Neuro: alert & oriented x3, NAD Neck: carotid US brisk, no JVD present Lungs: unlabored respirations Heart: PMI normal, RRR Abdomen: no HSM, NT/ND, soft Extremities: + femoral B - Telemetry Telemetry Rhythm: sr - Labs Result Diagrams: 03/05/19 04:25 03/06/19 06:08 Troponin/CKMB CK-MB (CK-2) 1.1 ng/mL (0-6.6) 02/28/19 15:18 Troponin I 0.325 ng/mL (< 0.028) H* 03/01/19 00:07 - Assessment/Plan Severe s/p AVR severe CAD s/p CABG post op afib Pt in SR over last two days Stop IV amiodarone Recommend op 3 week event recorder Concerns over compliance with ACT IS and PT
[2019-03-06] MEDS: Atorvastatin Calcium 10 MG TAB PO SCH (20:40)
[2019-03-06] MEDS: Enoxaparin Sodium 40 MG/0.4 ML SYRINGE SC SCH (20:40)
--- NOTE | 2019-03-07 06:14 | PDOC.CTH ---
Cardiology Progress Note - Subjective Ambulating. Doing well. No complaints. - Objective Vital Signs Temp Pulse Resp BP BP BP Pulse Ox 03/07/19 04:00 97.8 F 68 20 122/69 98 03/06/19 20:40 85 132/69 03/06/19 20:00 98.7 F 85 18 132/69 96 Weight 254 lb 3.2 oz 03/05/19 03/06/19 03/07/19 06:59 06:59 06:59 Intake Total 1447 1977.9 1800 Output Total 955 4050 2050 Balance 492 -2072.1 -250 - Physical Examination General/Neuro: alert & oriented x3, NAD Neck: carotid US brisk, no JVD present Lungs: CTA, unlabored respirations Heart: PMI normal, RRR Abdomen: NT/ND, soft Extremities: + femoral B - Telemetry Telemetry Rhythm: SR - Labs Result Diagrams: 03/05/19 04:25 03/06/19 06:08 Troponin/CKMB CK-MB (CK-2) 1.1 ng/mL (0-6.6) 02/28/19 15:18 Troponin I 0.325 ng/mL (< 0.028) H* 03/01/19 00:07 - Assessment/Plan Severe s/p AVR severe CAD s/p CABG post op afib REc 03/07 Amiodarone PO added IV amiodarone dc No ACT for now Rec OP 3 week event recorder If Afib continues (PAF), discuss ACT as outpatient REC 03/06 Pt in SR over last two days Stop IV amiodarone Recommend op 3 week event recorder Concerns over compliance with ACT IS and PT
[2019-03-07 08:35] VITALS: TEMP 96.5
[2019-03-07] MEDS ORDERED: Amiodarone 200 MG TAB PO SCH (09:00)
[2019-03-07] MEDS: Potassium Chloride 10 MEQ TAB PO SCH (09:36)
[2019-03-07] MEDS: Aspirin 325 mg Enteric Coated Tablet PO SCH (09:37)
[2019-03-07] MEDS: Lisinopril 5 MG TAB PO SCH (09:37)
[2019-03-07] MEDS: Famotidine 20 MG TAB PO SCH (09:37)
[2019-03-07] MEDS: Carvedilol 3.125 MG TAB PO SCH (09:37)
[2019-03-07] MEDS: Furosemide 40 MG TAB PO SCH (09:37)
[2019-03-07] MEDS: Polyethylene Glycol 3350 17 GM Packet PO SCH (09:38)
--- NOTE | 2019-03-07 11:20 | PDOC.PN ---
- Subjective Encounter Start Date: 03/07/19 Encounter Start Time: 08:00 Patient seen and examined. No new complaints. No overnight events - Objective Resuscitation Status - Order Detail: 02/28/19 22:41 Resuscitation Status Routine Resuscitation Status: FULL: Full Resuscitation MAR Reviewed: Yes Vital Signs & Weight: Vital Signs (12 hours) Temp Pulse Pulse Pulse Resp BP BP 03/07/19 09:37 79 117/76 03/07/19 08:57 84 98 115/65 03/07/19 08:00 96.5 F L 79 16 03/07/19 04:00 97.8 F 68 20 BP Pulse Ox 03/07/19 09:37 03/07/19 08:57 03/07/19 08:00 117/76 96 03/07/19 04:00 122/69 98 Weight Weight 246 lb 3.2 oz Most Recent Monitor Data Heart Rate from ECG 82 NIBP 121/74 NIBP BP-Mean 89 Respiration from ECG 24 SpO2 94 I&O: 03/06/19 03/07/19 03/08/19 06:59 06:59 06:59 Intake Total 1977.9 2232 Output Total 4050 2950 Balance -2072.1 -718 Result Diagrams: 03/05/19 04:25 03/06/19 06:08 EKG Reviewed by me: Yes Phys Exam - Physical Examination Constitutional: NAD HEENT: PERRLA, moist MMs, sclera anicteric Neck: no JVD, supple Respiratory: no wheezing, no rales, no rhonchi Cardiovascular: RRR, no significant murmur, no rub Gastrointestinal: soft, non-tender, no distention, positive bowel sounds Musculoskeletal: pulses present Neurological: non-focal, normal sensation Lymphatic: no nodes Psychiatric: normal affect, A&O x 3 Skin: no rash, normal turgor Dx/Plan (1) NSTEMI (non-ST elevated myocardial infarction) Code(s): I21.4 - NON-ST ELEVATION (NSTEMI) MYOCARDIAL INFARCTION Status: Acute Comment: 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 (2) CAD (coronary artery disease) Code(s): I25.10 - ATHSCL HEART DISEASE OF [place] CORONARY ARTERY W/O ANG PCTRS Status: Acute (3) S/P CABG (coronary artery bypass graft) Code(s): Z95.1 - PRESENCE OF AORTOCORONARY BYPASS GRAFT Status: Acute (4) Aortic stenosis Code(s): I35.0 - NONRHEUMATIC AORTIC (VALVE) STENOSIS Status: Chronic (5) S/P aortic valve replacement Code(s): Z95.2 - PRESENCE OF PROSTHETIC HEART VALVE Status: Acute (6) Allergic rhinitis Code(s): J30.9 - ALLERGIC RHINITIS, UNSPECIFIED Status: Chronic (7) YASSINE (obstructive sleep apnea) Code(s): G47.33 - OBSTRUCTIVE SLEEP APNEA (ADULT) (PEDIATRIC) Status: Chronic (8) Obesity (BMI 30-39.9) Code(s): E66.9 - OBESITY, UNSPECIFIED Status: Chronic (9) Atrial fibrillation with RVR Code(s): I48.91 - UNSPECIFIED ATRIAL FIBRILLATION Status: Acute Comment: post op PAF - Plan cont current plan of care * medication reviewed as below * symptomatic treatment * see my discharge sindhu. Review of Systems - Review of Systems ENT: negative: Ear Pain, Ear Discharge, Nose Pain, Nose Discharge, Nose Congestion, Mouth Pain, Mouth Swelling, Throat Pain, Throat Swelling, Other Respiratory: negative: Cough, Dry, Shortness of Breath, Hemoptysis, SOB with Excertion, Pleuritic Pain, Sputum, Wheezing Cardiovascular: negative: chest pain, palpitations, orthopnea, paroxysmal nocturnal dyspnea, edema, light headedness, other Gastrointestinal: negative: Nausea, Vomiting, Abdominal Pain, Diarrhea, Constipation, Melena, Hematochezia, Other Genitourinary: negative: Dysuria, Frequency, Incontinence, Hematuria, Retention , Other Musculoskeletal: negative: Neck Pain, Shoulder Pain, Arm Pain, Back Pain, Hand Pain, Leg Pain, Foot Pain, Other - Medications/Allergies Allergies/Adverse Reactions: Allergies Allergy/AdvReac Type Severity Reaction Status Date / Time No Known Allergies Allergy Verified 02/28/19 18:03 Medications: Current Medications Acetaminophen (Tylenol) 650 mg PO Q6H PRN PRN Reason: Headache/Fever or Pain Hydrocodone Bitart/Acetaminophen ([place] 5/325) 1 tab PO Q4H PRN PRN Reason: Moderate Pain (4-6) Last Admin: 03/06/19 22:37 Dose: 1 tab Hydrocodone Bitart/Acetaminophen ([place] 5/325) 2 tab PO Q4H PRN PRN Reason: Severe Pain (7-10) Al Hydroxide/Mg Hydroxide (Maalox) 30 ml PO Q4H PRN PRN Reason: Indigestion Albuterol/Ipratropium (Duoneb) 3 ml NEB [id number] PRN PRN Reason: Respiratory Distress Amiodarone HCl (Cordarone) 400 mg PO BID [facility] Last Admin: 03/07/19 09:37 Dose: 400 mg Aspirin (Ecotrin) 325 mg PO DAILY [facility] Last Admin: 03/07/19 09:37 Dose: 325 mg Atorvastatin Calcium (Lipitor) 10 mg PO HS [facility] Last Admin: 03/06/19 20:40 Dose: 10 mg Bisacodyl (Dulcolax) 10 mg PO Q12H PRN PRN Reason: Constipation Bisacodyl (Dulcolax) 10 mg [place] Q12H PRN PRN Reason: Constipation [facility] Last Admin: 03/07/19 09:37 Dose: 3.125 mg Enoxaparin Sodium (Lovenox) 40 mg SC 2100 [facility] Last Admin: 03/06/19 20:40 Dose: 40 mg Famotidine (Pepcid) 20 mg PO BID [facility] Last Admin: 03/07/19 09:37 Dose: 20 mg Furosemide (Lasix) 80 mg PO DAILY [facility] Last Admin: 03/07/19 09:37 Dose: 80 mg Guaifenesin/Dextromethorphan (Robitussin Dm) 15 ml PO Q4H PRN PRN Reason: Cough Lisinopril (Zestril) 5 mg PO BID [facility] Last Admin: 03/07/19 09:37 Dose: 5 mg Nitroglycerin (Nitrostat) 0.4 mg SL Q5MIN PRN PRN Reason: Chest Pain Polyethylene Glycol (Miralax) 17 gm PO DAILY [facility] Last Admin: 03/07/19 09:38 Dose: 17 gm Potassium Chloride (Klor-Con 10) [facility] Last Admin: 03/07/19 09:36 Dose: 10 meq
--- NOTE | 2019-03-07 11:27 | DIS ---
DATE OF ADMISSION: 02/28/2019 DATE OF DISCHARGE: 03/07/2019 PRIMARY CARE PHYSICIAN: Dr. Pam De La Rosa. DISCHARGE DISPOSITION: Home. PRIMARY DISCHARGE DIAGNOSES: 1. Eks-VT-[id number] myocardial infarction, type 2. 2. More severe aortic stenosis, status post aortic valve replacement. 3. Severe coronary artery disease, status post coronary artery bypass graft. 4. Postoperative atrial fibrillation with rapid ventricular response. SECONDARY DISCHARGE DIAGNOSIS: Obstructive sleep apnea, obesity with body mass index of 33, medication noncompliance, and allergic rhinitis. PRIMARY PROCEDURE/OPERATION: 1. Cardiac catheterization was performed by Cardiology and found with multivessel CAD. The patient was also found with a severe aortic stenosis. 2. CABG performed by Dr. Adams and aortic wall replacement with bioprosthetic wall was replaced by Dr. Adams. RADIOLOGICAL INVESTIGATION: Chest x-ray. SIGNIFICANT LABORATORY DATA: WBC 12.5, hemoglobin 11.3, and platelet 231. INR 1.5. Sodium 137, potassium 4.6, BUN 15, creatinine 0.79, and calcium 8.5. Urinalysis is unremarkable. Urine culture is negative. DISCHARGE MEDICATIONS: 1. Tylenol 650 mg q.6 hourly p.r.n. 2. Amiodarone 400 mg b.i.d. for 1 week, then 200 mg b.i.d. for 1 week, then 200 mg daily. 3. Aspirin 325 mg daily. 4. Lipitor 10 mg p.o. at bedtime. 5. Coreg 3.125 mg b.i.d. 6. Pepcid 20 mg b.i.d. 7. Lasix 80 mg p.o. daily. 8. Lisinopril 5 mg b.i.d. 9. MiraLAX 17 g p.o. daily. 10. Potassium chloride 20 mEq p.o. daily. CONTRAINDICATION: None. CODE STATUS: Full code. INPATIENT MOLD SHOP SUPERVISOR: Dr. Adams was consulted for aortic wall replacement and CABG. Dr. Parker was consulted for [id number] DC, who did cardiac cath. Pulmonary group was following while in CCU. TEST RESULT PENDING ON DISCHARGE: None. ALLERGIES: NO KNOWN DRUG ALLERGIES. DISCHARGE PLAN: Posthospital, the patient will follow up with primary care physician Dr. Adams on March 21, 2019. The patient will follow up with Dr. Parker on April 02, 2019, and the patient has outpatient cardiac rehabilitation. The patient has appointment with primary care physician on March 14, 2019. HOSPITAL COURSE: This is a 54-year-old male with above-mentioned medical problem, who was admitted by Dr. Gallagher. Please see his H and P for further details. The patient was admitted on February 28, 2019. He presented to emergency room with chest pain. He was having significantly abnormal troponin and it was consistent with [id number] DC. Cardiology was consulted and they did cardiac cath, and the patient was found with severe CAD as well as severe aortic stenosis. Cardiology recommended CABG. Dr. Adams did a CABG along with bioprosthetic aortic wall replacement. Postprocedure, the patient developed AFib with RVR, which remained in paroxysmal AFib with RVR, that was controlled with amiodarone. On discharge, amiodarone drip was changed to p.o. amiodarone and tapering doses of amiodarone was prescribed. At this point, Cardiology does not want to start anticoagulation and they will decide about anticoagulation as an outpatient basis. This patient has underlying noncompliance issue. His blood pressure medication is adjusted as above. He is given prescription for Lasix and that medication needs to be stopped upon followup visit if needed and that will be decided by Cardiology as well as cardiovascular surgeon upon followup visit. I have given prescription for all medication as above. The patient is doing very well postoperatively, and once cardiovascular surgeon and Cardiology cleared for his discharge, then the patient will be discharged later on today. I have seen and examined the patient bedside today. REVIEW OF SYSTEMS: Reviewed and negative. PHYSICAL EXAMINATION: VITAL SIGNS: Currently, temperature 96.5, pulse 79, respiratory rate 16, blood pressure 117/76, and weight 246 pounds. GENERAL: The patient is currently alert, awake, no acute distress. HEENT: Head, normocephalic and atraumatic. Eyes, pupils round and reactive to light, extraocular muscle intact. LUNGS: Clear without any rhonchi or rales. CARDIAC: S1 and S2 regular. Bioprosthetic sound heard. ABDOMEN: Soft and benign. EXTREMITIES: Trace edema. NEUROLOGIC: Nonfocal examination. Central line will be removed today. Job ID: [id number]
[2019-03-07 16:11] VITALS: BP 117/72
== END 2019-03-07 16:10 | disposition home or self-care (01) | DRG 217 ==
LOC: ERS 14:45 → 2NO 16:09 → CCU 03-02 07:05 → 2NO 03-05 23:23
PROVIDERS: ADMIT Emergency Medicine; ATTEND Emergency Medicine
PROC: 4A023N7 Measurement of Cardiac Sampling and Pressure, Left Heart, Percutaneous Approach (ICD-10-PCS; 2019-02-28)
PROC: B2111ZZ Fluoroscopy of Multiple Coronary Arteries using Low Osmolar Contrast (ICD-10-PCS; 2019-02-28)
PROC: B2151ZZ Fluoroscopy of Left Heart using Low Osmolar Contrast (ICD-10-PCS; 2019-02-28)
PROC: 02100Z9 Bypass Coronary Artery, One Artery from Left Internal Mammary, Open Approach (ICD-10-PCS; principal; 2019-03-02)
PROC: 02RF08Z Replacement of Aortic Valve with Zooplastic Tissue, Open Approach (ICD-10-PCS; 2019-03-02)
PROC: 5A1221Z Performance of Cardiac Output, Continuous (ICD-10-PCS; 2019-03-02)
DX: I21.4 Non-ST elevation (NSTEMI) myocardial infarction (principal); I97.89 Other postprocedural complications and disorders of the circulatory system, not elsewhere classified; G47.33 Obstructive sleep apnea (adult) (pediatric); J30.9 Allergic rhinitis, unspecified; R74.8 Abnormal levels of other serum enzymes; I12.9 Hypertensive chronic kidney disease with stage 1 through stage 4 chronic kidney disease, or unspecified chronic kidney disease; N18.2 Chronic kidney disease, stage 2 (mild); E66.9 Obesity, unspecified; I25.10 Atherosclerotic heart disease of native coronary artery without angina pectoris; I35.0 Nonrheumatic aortic (valve) stenosis; Z79.899 Other long term (current) drug therapy; Z88.8 Allergy status to other drugs, medicaments and biological substances; Z79.82 Long term (current) use of aspirin; Z68.33 Body mass index [BMI] 33.0-33.9, adult
CPT/HCPCS: 36415; 36416; 36430; 37252; 71045; 80048; 80053; 80061; 81001; 82550; 82553; 82805; 83036; 83690; 84484; 85025; 85347; 85610; 85730; 86850; 86900; 86901; 87086; 93005; 93010; 93306; 93454; 93798; 94640; 94660; 94760; 96360; 96372; 99152; C1753; C1769; J0171; J0282; J0360; J0690; J1100; J1160; J1642; J1644; J1650; J1815; J1885; J1940; J2001; J2150; J2250; J2260; J2405; J2440; J2720; J3010; J3370; J3475; J3480; J3490; J7050; J7070; J7620; P9045; Q9967; S0017; S0028

== ENCOUNTER 2019-03-30 20:39 | Inpatient (IN) | payer BC ==
[~2019-03-30 20:39] MED LIST: ISOVUE-370 76%-LOCM 1 ML ONE
--- NOTE | 2019-03-30 21:56 | CT ---
CTA CHEST WITH CONTRAST: 03/30/19 Axial tomograms obtained following angio protocol with multiplanar reconstructions and 3D post proces sing. INDICATIONS: Chest pain. Recent postop. FINDINGS: Pulmonary arteries show adequate enhancement. No evidence of pulmonary embolus identified. Small left pleural effusion. Dense consolidation and atelectasis in the left lung base concerning fo r pneumonia. Mild atelectasis in the right lung base without focal infiltrate or consolidation. Mediastinum unrema rkable. Thoracic aorta unremarkable. IMPRESSION: 1. No evidence of pulmonary embolus. 2. Small left pleural effusion and dense consolidation left lung base. POS: H
[2019-03-30] MEDS ORDERED: Aspirin 325 MG TAB PO SCH (23:00)
[2019-03-30 23:38] VITALS: BMI 34.3
[2019-03-30] MEDS ORDERED: Nitroglycerin 0.4 MG TAB (25 Tab Bottle) PO PRN (23:43)
--- NOTE | 2019-03-31 00:17 | HP ---
PRIMARY CARE PROVIDER: Dr. Pam De La Rosa. CHIEF COMPLAINT: Chest pain. HISTORY OF PRESENT ILLNESS: Mr. Bright is a pleasant 54-year-old gentleman, who was seen at [facility] on March 30, 2019. He was hospitalized at this facility from December 01 to of this year for non ST-elevation myocardial infarction type 2. He was also found to have severe aortic stenosis and severe coronary artery disease. He underwent coronary artery bypass graft and aortic valve replacement. During the postoperative period, he also had atrial fibrillation. He reports that he followed up with his video photographer, Dr. Parker, with cardiovascular surgeon, Dr. Adams following discharge. Three days ago, he started cardiac rehab. He reports that today he started having left-sided chest pain. He reports that it is dull, pressure like, 8/10 at its worst, not accompanied by shortness of breath, accompanied by nausea. He tried Tylenol with some improvement. He reports that the pain was worse with exercise. The patient also reports cough over the last couple of days that is dry. REVIEW OF SYSTEMS: All other systems reviewed and found to be negative. PAST MEDICAL HISTORY: Coronary artery disease, myocardial infarction, hypertension, and aortic stenosis. PAST SURGICAL HISTORY: Coronary artery bypass graft and aortic valve replacement. SOCIAL HISTORY: The patient denies tobacco use, alcohol use, or recreational drug use. FAMILY HISTORY: The patient denies any family history of premature coronary artery disease. ALLERGIES: NO KNOWN DRUG ALLERGIES. CURRENT MEDICATIONS: 1. Acetaminophen 325 mg daily. 2. Amiodarone 200 mg daily. 3. Atorvastatin 40 mg daily. 4. Coreg 3.125 mg 2 times a day. 5. Lisinopril 5 mg 2 times a day. PHYSICAL EXAMINATION: GENERAL: On examination, Mr. Bright is awake and alert, not in acute distress. VITAL SIGNS: Blood pressure is 117/73, pulse 97, respiratory rate 20, and oxygen saturation 94% on room air. Temperature is 99.1 degrees Fahrenheit. EYES: No scleral icterus. No conjunctival pallor. ENT: Moist mucosal membranes. No oropharyngeal erythema or exudates. NECK: Supple, nontender. Trachea is midline. RESPIRATORY: Accessory muscles of breathing are not active. Chest wall movements are symmetric bilaterally. LUNGS: Clear to auscultation without wheeze, rhonchi, or crepitations. CARDIOVASCULAR: S1 and S2 are heard, regular. Peripheral pulses palpable. No carotid bruit. No pericardial rub. ABDOMEN: Soft, nontender. Bowel sounds are heard. NEUROLOGIC: Cranial nerves 2 through 12 intact, deep tendon reflexes 2+. MUSCULOSKELETAL: Power is 5/5 in all 4 extremities. SKIN: No rashes or subcutaneous nodules. Surgical site is clean. LYMPHATIC: No cervical lymphadenopathy. PSYCHIATRIC: Normal mood, normal affect. The patient is oriented to person, place, and time. Mr. Bright's labs and investigations were reviewed. I reviewed his electrocardiogram, which shows normal sinus rhythm, no ST changes to suggest an acute coronary syndrome. I also reviewed his chest x-ray, which shows cardiomegaly. He had CT angiogram of the chest, which did not show any pulmonary embolism, but he had a small left pleural effusion and dense consolidation of left lung base concerning for pneumonia. He has leukocytosis with 13,000 white cells, of which 79.8% are neutrophils, normocytic anemia with hemoglobin 13.3, normal platelet count, normal sodium, normal potassium, normal blood urea nitrogen and normal creatinine. Liver profile is unremarkable. BNP is mildly elevated at 115. ASSESSMENT AND PLAN: Mr. Bright is a 54-year-old gentleman, who was seen at [facility] on March 30, 2019, following transfer from emergency room at [place]. His problem list includes: 1. Chest pain: Mr. Bright is presenting with left-sided chest pain. His troponins have been normal. He does have left-sided pneumonia, which is most likely the cause of his left-sided chest pain. He will be treated with intravenous antibiotics. We will also consult Cardiology Service for opinion and help with management. 2. Coronary artery disease: Status post recent coronary artery bypass graft. Continue Coreg and atorvastatin. 3. Hypertension: Controlled, continue lisinopril and Coreg. 4. Dyslipidemia: Continue atorvastatin. 5. History of atrial fibrillation: Continue amiodarone. Many thanks for allowing me to participate in your patient's care. Please feel free to contact me with any questions or concerns. LEVEL OF RISK: High. LEVEL OF COMPLEXITY: High. Job ID: [id number]
[2019-03-31] MEDS ORDERED: Doxycycline 100 MG CAP PO SCH (00:30)
[2019-03-31] MEDS ORDERED: cefTRIAXone\\ROCEPHIN 1 GM in Sodium Chloride 0.9% 100 ML IVPB SCH (01:00)
[2019-03-31] MEDS: Acetaminophen 325 MG TAB PO PRN (02:55)
[2019-03-31 03:32] LABS: Troponin I 0.015 ng/mL (< 0.028)
[2019-03-31] MEDS ORDERED: Amiodarone 200 MG TAB PO SCH (09:00)
[2019-03-31] MEDS: Atorvastatin Calcium 40 MG TAB PO SCH (09:19)
[2019-03-31] MEDS: Lisinopril 5 MG TAB PO SCH ×2 (09:19→20:03)
[2019-03-31] MEDS: Carvedilol 3.125 MG TAB PO SCH ×2 (09:19→16:51)
[2019-03-31] MEDS: Doxycycline 100 MG CAP PO SCH ×2 (09:20→20:03)
--- NOTE | 2019-03-31 10:07 | CON ---
DATE OF CONSULTATION: 03/31/2019 REASON FOR CONSULTATION: Chest pressure. HISTORY OF PRESENT ILLNESS: Mr. Bright is a very pleasant 54-year-old gentleman, who recently underwent bypass surgery with aortic valve replacement. He recently presented with chest pressure. He states he felt he overdid it. He is currently pain-free. He states the pain is similar to his incisional pain. He was recently also diagnosed with left-sided pneumonia with dense consolidation of the left lung base. PAST MEDICAL HISTORY: Hypertension, aortic stenosis, status post aortic valve replacement, obstructive sleep apnea. PAST SURGICAL HISTORY: As above. SOCIAL HISTORY: No current tobacco or alcohol use. ALLERGIES: SNOW INHIBITOR THERAPY. HOME MEDICATIONS: Include: 1. Aspirin. 2. Atorvastatin. 3. Carvedilol. 4. Amiodarone. 5. Lisinopril. REVIEW OF SYSTEMS: 10-point review of systems is reviewed and as above, otherwise negative. PHYSICAL EXAMINATION: GENERAL: Patient is a pleasant gentleman, who is in no acute distress. The patient appears his stated age. VITAL SIGNS: Blood pressure 105/69, pulse 92, temperature 98.2. NEUROLOGIC: The patient is alert and oriented x3 with no focal neurologic deficits. HEENT: Sclerae without icterus. Mouth has moist mucous membranes with normal pallor. NECK: No JVD. Carotid upstroke brisk. No bruits bilaterally. LUNGS: Clear to auscultation with unlabored respirations. BACK: No scoliosis or kyphosis. CARDIAC: Regular rate and rhythm with normal S1 and S2. No S3 or S4 noted. No significant rubs, murmurs, thrills, or gallops noted throughout the precordium. PMI is not displaced. There is no parasternal heave. ABDOMEN: Soft, nontender, nondistended. No peritoneal signs present. No hepatosplenomegaly. No abnormal striae. EXTREMITIES: 2+ femoral and 2+ dorsalis pedis pulses. No cyanosis, clubbing, or edema. SKIN: No gross abnormalities. PERTINENT LABORATORY DATA: Troponin negative. Hemoglobin 13.3. BNP 115. IMPRESSION: 1. Atypical chest pain. 2. Recent revascularization. 3. Coronary artery disease. 4. Status post bypass surgery. 5. Status post aortic valve replacement. 6. Pneumonia. RECOMMENDATIONS: Mr. Bright's symptoms do not appear to be related to underlying coronary artery disease. At this point, recommend stopping amiodarone. Antibiotic has been started. From a CV standpoint, I have no further recommendations. We will continue Coreg, atorvastatin in addition to aspirin. Please re-consult if needed. Plan is to follow up with Mr. Bright as an outpatient. Job ID: [id number]
[2019-03-31] MEDS ORDERED: cefTRIAXone\\ROCEPHIN 2 GM in Sodium Chloride 0.9% 100 ML IVPB SCH (12:00)
--- NOTE | 2019-03-31 16:45 | EKG ---
Test Reason : Blood Pressure : / mmHG Vent. Rate : 092 BPM Atrial Rate : 092 BPM P-R Int : 176 ms QRS Dur : 102 ms QT Int : 376 ms P-R-T Axes : 029 026 018 degrees QTc Int : 464 ms Normal sinus rhythm Left atrial enlargement Borderline ECG Confirmed by JELANI TORRES ([id number]), dairy nutritionist MIKA UP ([id number]) on 03/31/2019 4:45:31 PM Referred By: Confirmed By:JELANI TORRES
--- NOTE | 2019-03-31 18:36 | PDOC.PN ---
- Subjective Encounter Start Date: 03/31/19 Encounter Start Time: 08:30 Patient seen and examined for CP. No SOB/diaphoresis. Mild dry cough. No new complaints. No overnight events - Objective MAR Reviewed: Yes Vital Signs & Weight: Vital Signs (12 hours) Temp Pulse Resp BP BP Pulse Ox 03/31/19 15:09 97.5 F L 86 24 H 106/63 94 L 03/31/19 11:15 98.2 F 69 16 104/69 94 L 03/31/19 09:19 84 112/63 03/31/19 09:15 86 112/63 03/31/19 07:19 97.5 F L 84 18 95/66 94 L Weight Weight 253 lb I&O: 03/30/19 03/31/19 04/01/19 06:59 06:59 06:59 Intake Total 780 700 Output Total 1875 Balance -1095 700 Radiology Reviewed by me: Yes (CTA - LLL Pneumonia) EKG Reviewed by me: Yes (Tele SR) Phys Exam - Physical Examination Constitutional: NAD Respiratory: no wheezing, no rhonchi dec AE at left base with rales Cardiovascular: RRR, no rub no heaves/pulsations Gastrointestinal: soft, non-tender, no distention, positive bowel sounds Musculoskeletal: no edema Neurological: non-focal, normal sensation, moves all 4 limbs Psychiatric: normal affect, A&O x 3 Dx/Plan - Plan DVT proph w/SCDs IMPRESSION: Atypical CP with negative troponins Left lower lobe Pneumonia ?Pneumococcal with ?Sepsis HTN HLD CAD Leucocytosis due to Pneumonia PLAN: Increase Rocephin dose to 2 g daily Cont Doxycycline Avoid Azithromycin/Levaquin due to interaction with Amiodarone Cont ASA/Coreg Cont to monitor AM labs Review of Systems - Review of Systems Respiratory: Cough. negative: Dry, Shortness of Breath, Hemoptysis, SOB with Excertion, Pleuritic Pain, Sputum, Wheezing Cardiovascular: chest pain. negative: palpitations, orthopnea, paroxysmal nocturnal dyspnea, edema, light headedness, other Gastrointestinal: negative: Nausea, Vomiting, Abdominal Pain, Diarrhea, Constipation, Melena, Hematochezia, Other - Medications/Allergies Allergies/Adverse Reactions: Allergies Allergy/AdvReac Type Severity Reaction Status Date / Time No Known Allergies Allergy Verified 03/30/19 23:30 Medications: Current Medications Acetaminophen (Tylenol) 650 mg PO Q6H PRN PRN Reason: Headache/MILD PAIN 1-3 Last Admin: 03/31/19 02:55 Dose: 650 mg Aspirin (Ecotrin) 325 mg PO [facility] Atorvastatin Calcium (Lipitor) 40 mg PO DAILY [facility] Last Admin: 03/31/19 09:19 Dose: 40 mg Carvedilol (Coreg) 3.125 mg PO BID-[facility] Last Admin: 03/31/19 16:51 Dose: 3.125 mg Doxycycline Hyclate (Vibramycin) 100 mg PO BID [facility] Last Admin: 03/31/19 09:20 Dose: 100 mg Ceftriaxone Sodium 2 gm/ (Sodium Chloride) 100 mls @ 200 mls/hr IVPB 1200 [facility] Last Admin: 03/31/19 13:01 Dose: 100 mls Lisinopril (Zestril) 5 mg PO BID [facility] Last Admin: 03/31/19 09:19 Dose: 5 mg Nitroglycerin (Nitrostat) 0.4 mg PO Q5MIN PRN PRN Reason: Chest Pain Sodium Chloride (Flush - Normal Saline) 10 ml IVF Q12HR [facility] Last Admin: 03/31/19 09:20 Dose: 10 ml Sodium Chloride (Flush - Normal Saline) 10 ml IVF PRN PRN PRN Reason: Saline Flush
[2019-03-31] MEDS: Aspirin 325 mg Enteric Coated Tablet PO SCH (20:03)
[2019-04-01 05:26] LABS: #Eosinphils 0.3 thou/uL (0.0-0.7); #Lymphocytes 2.3 thou/uL (1.20-3.40); #Monocytes 1.2 thou/uL (0.11-0.59); %Basophils 0.3 % (0.0-1.0); %Eosinophils 2.3 % (0.0-10.0); %Lymphocytes 17.7 % (21.0-51.0); %Monocytes 9.6 % (0.0-10.0); %Neutrophils 70.1 % (42.0-75.0); Hemoglobin 12.7 g/dL (14.0-18.0); Mean Corpuscular HGB CONC 33.3 g/dL (32.0-36.0); Mean Corpuscular Hemoglobin 28.5 pg (27.0-31.0); Mean Corpuscular Volume 85.6 fL (78.0-98.0); Mean Platelet Volume 7.2 fL (7.4-10.4); Platelet Count 301 thou/uL (130-400); RBC Distribution Width 12.1 % (11.5-14.5); Red Blood Cell (RBC) Count 4.45 mill/uL (4.70-6.10); White Blood Cell (WBC) Count 12.8 thou/uL (4.8-10.8)
[2019-04-01] MEDS: Acetaminophen 325 MG TAB PO PRN ×3 (06:09→20:01)
[2019-04-01] MEDS: Lisinopril 5 MG TAB PO SCH ×2 (09:10→20:00)
[2019-04-01] MEDS: Atorvastatin Calcium 40 MG TAB PO SCH (09:10)
[2019-04-01] MEDS: Carvedilol 3.125 MG TAB PO SCH ×2 (09:10→17:06)
[2019-04-01] MEDS: Doxycycline 100 MG CAP PO SCH (09:10)
[2019-04-01] MEDS ORDERED: cefTRIAXone\\ROCEPHIN 2 GM in Sodium Chloride 0.9% 100 ML IVPB SCH (09:15)
[2019-04-01] MEDS ORDERED: Calcium Carbonate 500 MG ChewTAB PO PRN (09:58)
[2019-04-01] MEDS ORDERED: Senokot S 8.6-50 MG TAB PO PRN (09:58)
[2019-04-01] MEDS: Sodium Chloride 0.9% 1,000 ML IV SCH (16:03)
--- NOTE | 2019-04-01 19:47 | PDOC.PN ---
- Subjective Encounter Start Date: 04/01/19 Encounter Start Time: 09:00 Patient seen and examined for Pneumonia. Low grade fever. No CP. No other complaints. No overnight events - Objective Resuscitation Status - Order Detail: 04/01/19 09:58 Resuscitation Status Routine Resuscitation Status: FULL: Full Resuscitation MAR Reviewed: Yes Vital Signs & Weight: Vital Signs (12 hours) Temp Pulse Resp BP BP Pulse Ox 04/01/19 19:10 99.2 F 85 24 H 100/58 L 93 L 04/01/19 17:22 97.6 F 22 H 94 L 04/01/19 16:03 86 100/56 L 04/01/19 15:21 100.2 F H 87 20 88/52 L 93 L 04/01/19 14:38 98.8 F 04/01/19 13:37 88 101/61 04/01/19 12:09 98.1 F 81 20 103/53 L 96 04/01/19 10:40 94 L 04/01/19 09:10 83 108/63 Weight Weight 253 lb I&O: 03/31/19 04/01/19 04/02/19 06:59 06:59 06:59 Intake Total 780 2090 1050 Output Total 1875 300 125 Balance -1095 1790 925 Result Diagrams: 04/02/19 04:43 04/02/19 04:43 EKG Reviewed by me: Yes (Tele SR) Phys Exam - Physical Examination Constitutional: NAD Respiratory: no wheezing, no rhonchi Left sided rales/rhonchi Cardiovascular: RRR, no rub Gastrointestinal: soft, non-tender, positive bowel sounds Musculoskeletal: no edema Neurological: non-focal, moves all 4 limbs Dx/Plan - Plan DVT proph w/SCDs IMPRESSION: Atypical CP with negative troponins Left lower lobe Pneumonia ?Pneumococcal with ?Sepsis HTN HLD CAD Leucocytosis due to Pneumonia PLAN: Cont Rocephin Add Levaquin (Amiodarone has been dced by Cardiology) DC Doxycycline Cont ASA/Coreg Cont to monitor - Not stable for discharge due to persistent low grade fever AM labs Review of Systems - Review of Systems Respiratory: Cough, Sputum. negative: Dry, Shortness of Breath, Hemoptysis, SOB with Excertion, Pleuritic Pain, Wheezing Cardiovascular: negative: chest pain, palpitations, orthopnea, paroxysmal nocturnal dyspnea, edema, light headedness, other Gastrointestinal: negative: Nausea, Vomiting, Abdominal Pain, Diarrhea, Constipation, Melena, Hematochezia, Other - Medications/Allergies Allergies/Adverse Reactions: Allergies Allergy/AdvReac Type Severity Reaction Status Date / Time No Known Allergies Allergy Verified 03/30/19 23:30 Medications: Current Medications Acetaminophen (Tylenol) 650 mg PO Q6H PRN PRN Reason: Headache/MILD PAIN 1-3 Last Admin: 04/01/19 13:37 Dose: 650 mg Aspirin (Ecotrin) [address] [facility] Last Admin: 03/31/19 20:03 Dose: 325 mg Atorvastatin Calcium (Lipitor) 40 mg PO DAILY [facility] Last Admin: 04/01/19 09:10 Dose: 40 mg Calcium Carbonate (Tums) 1,000 mg PO Q4H PRN PRN Reason: Heartburn or Indigestion Carvedilol (Coreg) 3.125 mg PO BID-[facility] Last Admin: 04/01/19 17:06 Dose: 3.125 mg Ceftriaxone Sodium 2 gm/ (Sodium Chloride) 100 mls @ 200 mls/hr IVPB 1000 [facility] Levofloxacin 750 mg/ Device 150 mls @ 100 mls/hr IVPB 1200 [facility] Last Admin: 04/01/19 12:11 Dose: 150 mls Sodium Chloride (Normal Saline 0.9%) 1,000 mls @ 70 mls/hr IV .[id number] [facility] Last Admin: 04/01/19 16:03 Dose: 1,000 mls Lisinopril (Zestril) 5 mg PO BID [facility] Last Admin: 04/01/19 09:10 Dose: 5 mg Nitroglycerin (Nitrostat) 0.4 mg PO Q5MIN PRN PRN Reason: Chest Pain Saccharomyces Boulardii (Florastor) [address] [facility] Senna/Docusate Sodium (Senokot S) 2 tab PO BID PRN PRN Reason: Constipation Sodium Chloride (Flush - Normal Saline) 10 ml IVF Q12HR [facility] Last Admin: 04/01/19 09:10 Dose: 10 ml Sodium Chloride (Flush - Normal Saline) 10 ml IVF PRN PRN PRN Reason: Saline Flush
[2019-04-01] MEDS: Aspirin 325 mg Enteric Coated Tablet PO SCH (20:01)
[2019-04-01] MEDS: Saccharomyces boulardii 250 MG CAP PO SCH (20:01)
[2019-04-02] MEDS: Acetaminophen 325 MG TAB PO PRN (01:01)
[2019-04-02 05:11] LABS: #Eosinphils 0.3 thou/uL (0.0-0.7); #Lymphocytes 2.1 thou/uL (1.20-3.40); #Monocytes 1.1 thou/uL (0.11-0.59); #Neutrophils 9.7 thou/uL (1.40-6.50); %Basophils 0.3 % (0.0-1.0); %Eosinophils 2.3 % (0.0-10.0); %Lymphocytes 16.1 % (21.0-51.0); %Monocytes 8.5 % (0.0-10.0); %Neutrophils 72.8 % (42.0-75.0); Hemoglobin 12.8 g/dL (14.0-18.0); Mean Corpuscular HGB CONC 32.5 g/dL (32.0-36.0); Mean Platelet Volume 7.1 fL (7.4-10.4); Platelet Count 304 thou/uL (130-400); RBC Distribution Width 12.2 % (11.5-14.5); Red Blood Cell (RBC) Count 4.57 mill/uL (4.70-6.10); White Blood Cell (WBC) Count 13.3 thou/uL (4.8-10.8)
[2019-04-02 05:20] LABS: Anion Gap 13 mmol/L (10-20); BUN (Urea Nitrogen) 10 mg/dL (8.4-25.7); Calc. Creatinine Clearance 164 mL/min (70-130); Calcium 8.7 mg/dL (7.8-10.44); Carbon Dioxide 23 mmol/L (22-29); Chloride 106 mmol/L (98-107); Estimated GFR-MDRD Greater than 90; Glucose 99 mg/dL (70-105); Potassium 3.9 mmol/L (3.5-5.1); Sodium 138 mmol/L (136-145)
[2019-04-02] MEDS: Sodium Chloride 0.9% 1,000 ML IV SCH (06:04)
[2019-04-02] MEDS: Lisinopril 5 MG TAB PO SCH ×2 (08:31→20:59)
[2019-04-02] MEDS: Atorvastatin Calcium 40 MG TAB PO SCH (08:31)
[2019-04-02] MEDS: Carvedilol 3.125 MG TAB PO SCH ×2 (08:31→17:21)
[2019-04-02] MEDS ORDERED: Vancomycin HCl 1 GM in Premix Bag 1 BAG IVPB SCH (09:10)
--- NOTE | 2019-04-02 09:14 | RAD ---
Portable chest: HISTORY: Follow-up pneumonia COMPARISON: 03/30/2019 FINDINGS: Opacification left lung base again noted consistent with dense consolidation and effusion. Cardiomegaly postop sternotomy change. Right lung remains clear. IMPRESSION: No significant interval change.
--- NOTE | 2019-04-02 09:14 | PDOC.PN ---
- Subjective Encounter Start Date: 04/02/19 Encounter Start Time: 09:12 was seen today in follow-up of Pneumonia. He says he feeling better today. He still feels a bit fatigued, and his nurse notes that he had a high sepsis score last night, and has been running a low grade temp. as well as borderline blood pressures. - Objective Resuscitation Status - Order Detail: 04/01/19 09:58 Resuscitation Status Routine Resuscitation Status: FULL: Full Resuscitation MAR Reviewed: Yes Vital Signs & Weight: Vital Signs (12 hours) Temp Pulse Resp BP BP Pulse Ox 04/02/19 08:31 83 101/66 04/02/19 07:16 98.8 F 83 20 101/66 94 L 04/02/19 03:03 98.8 F 81 17 102/64 95 04/02/19 00:55 98.2 F 84 20 94/57 L 93 L 04/01/19 23:58 98.2 F 04/01/19 22:55 99.7 F H 90 20 89/53 L 93 L Weight Weight 245 lb 9.6 oz I&O: 04/01/19 04/02/19 04/03/19 06:59 06:59 06:59 Intake Total 2090 2370 Output Total 300 1075 Balance 1790 1295 Result Diagrams: 04/02/19 04:43 04/02/19 04:43 Phys Exam - Physical Examination HEENT: PERRLA Respiratory: no wheezing Decreased breath sounds at both bases Cardiovascular: RRR, no significant murmur, no rub Gastrointestinal: soft, non-tender, no distention, positive bowel sounds Musculoskeletal: no edema, pulses present Neurological: non-focal, moves all 4 limbs Dx/Plan (1) HAP (hospital-acquired pneumonia) Code(s): J18.9 - PNEUMONIA, UNSPECIFIED ORGANISM; Y95 - NOSOCOMIAL CONDITION Status: Acute (2) CAD (coronary artery disease) Code(s): I25.10 - ATHSCL HEART DISEASE OF [place] CORONARY ARTERY W/O ANG PCTRS Status: Acute (3) Hypertension Code(s): I10 - ESSENTIAL (PRIMARY) HYPERTENSION Status: Acute (4) Aortic stenosis Code(s): I35.0 - NONRHEUMATIC AORTIC (VALVE) STENOSIS Status: Chronic - Plan * Pneumonia HAP- he has been hospitalized less than a month ago for several days , he is at risk for HAP. Will broaden is antibiotic coverage to Vancomycin and Zosyn * CAD- stable- he has been evaluated by Cardiology during this admission * HTN- blood pressure is better, now, it had been on the lower side- will monitor * - patient has had recent placement of a bioprosthestic valve, and is NOT on anticoagulation * Continue Cardiac Rehab. * Change Status to Inpatient
[2019-04-02] MEDS ORDERED: cefTRIAXone\\ROCEPHIN 2 GM in Sodium Chloride 0.9% 100 ML IVPB SCH (10:00)
[2019-04-02] MEDS: Piperacillin/Tazobactam 3.375 GM in Sodium Chloride 0.9% 100 ML IVPB SCH ×3 (14:00→20:59)
[2019-04-02] MEDS: Aspirin 325 mg Enteric Coated Tablet PO SCH (20:59)
[2019-04-02] MEDS: Saccharomyces boulardii 250 MG CAP PO SCH (20:59)
[2019-04-03] MEDS: Piperacillin/Tazobactam 3.375 GM in Sodium Chloride 0.9% 100 ML IVPB SCH ×3 (02:35→14:32)
[2019-04-03] MEDS: Sodium Chloride 0.9% 1,000 ML IV SCH (03:56)
[2019-04-03 05:08] LABS: #Eosinphils 0.3 thou/uL (0.0-0.7); #Lymphocytes 1.4 thou/uL (1.20-3.40); #Monocytes 0.8 thou/uL (0.11-0.59); #Neutrophils 7.9 thou/uL (1.40-6.50); %Basophils 0.4 % (0.0-1.0); %Eosinophils 3.1 % (0.0-10.0); %Lymphocytes 13.7 % (21.0-51.0); %Monocytes 7.7 % (0.0-10.0); %Neutrophils 75.1 % (42.0-75.0); Hemoglobin 12.2 g/dL (14.0-18.0); Mean Corpuscular HGB CONC 33.1 g/dL (32.0-36.0); Mean Corpuscular Hemoglobin 28.5 pg (27.0-31.0); Mean Corpuscular Volume 86.2 fL (78.0-98.0); Mean Platelet Volume 6.8 fL (7.4-10.4); Platelet Count 322 thou/uL (130-400); RBC Distribution Width 12.1 % (11.5-14.5); Red Blood Cell (RBC) Count 4.27 mill/uL (4.70-6.10); White Blood Cell (WBC) Count 10.5 thou/uL (4.8-10.8)
[2019-04-03 05:28] LABS: Anion Gap 14 mmol/L (10-20); BUN (Urea Nitrogen) 8 mg/dL (8.4-25.7); Calc. Creatinine Clearance 168 mL/min (70-130); Calcium 8.3 mg/dL (7.8-10.44); Carbon Dioxide 21 mmol/L (22-29); Chloride 104 mmol/L (98-107); Estimated GFR-MDRD Greater than 90; Glucose 99 mg/dL (70-105); Potassium 3.6 mmol/L (3.5-5.1); Sodium 135 mmol/L (136-145)
[2019-04-03] MEDS: Atorvastatin Calcium 40 MG TAB PO SCH (08:40)
[2019-04-03] MEDS: Lisinopril 5 MG TAB PO SCH (08:40)
[2019-04-03] MEDS: Carvedilol 3.125 MG TAB PO SCH (08:40)
[2019-04-03 13:07] VITALS: BP 118/73; TEMP 98
--- NOTE | 2019-04-04 06:48 | PQF ---
SAP Tile Layer Supervisor Crystal Reports Winform Viewer JATIN UREÑA MALIK MD [id number] [facility]291 [id number] CLINICAL DOCUMENTATION CLARIFICATION FORM: POST DISCHARGE Addendum to original discharge summary date: ____ Late entry note date: __ DISCHARGE SUMMARY DICTATED BY DR LIU. PLEASE FORWARD TO DR LIU. DATE:04-04-19 ATTN:Freddy Rojas Please exercise your independent, professional judgment in responding to the clarification form. Clinical indicators are provided on the bottom of this form for your review Can you please specify whether Sepsis is ruled in or ruled out during this encounter? Please check appropriate box(s) to clarify if the following diagnosis has been ruled in or ruled out: Sepsis [ ] Ruled in diagnosis [ ] Continue to treat [ ] Resolved [ ] Ruled out diagnosis [ ] Cannot rule out diagnosis [ ] Other diagnosis please specify: [ ] Unable to determine In addition, please specify: Present on Admission (POA): [ ] Yes [ ] No [ ] Unable to determine For continuity of documentation, please document condition throughout progress notes and discharge summary. Thank You. CLINICAL INDICATORS: H&P 06/ pg.[address] Loza The patient also reports cough over the last couple of days that is dry H&P 03/[address] Loza Blood pressure is 117/73, pulse is 97, respiratory rate 20, and oxygen saturation 94% on room air H&P 03/[address] Loza He had CT angiogram of the chest, which did not show any pulmonary embolism, but he had small left pleural effusion and dense consolidation of left lung base concerning for pneumonia H&P 03/[address] Loza He does have left sided pneumonia which is most likely the cause of his left sided chest pain PN 03/[address] Zapata Left lower lobe Pneumonia? Pneumococcal with? Sepsis PN 03/[address] Zapata Leukocytosis due to Pneumonia PN 04/[address] Zapata Cont to monitor-not stable for discharge due to persistent low grade fever Vital Signs: Respi: 22 H, 24 H (04/01) Gmuu=846.2 H (04/01) Laboratory: WBC=12.8, 13.3, Lactic Acid=0.9 RISK FACTOR: H&P 03/30-Pneumonia H&P 03/30-HTN TREATMENTS: PN 03/28- Increase Rocephine Dose to 2 g /daily PN 03/28-Avoid Azithromycin/ Levaquin due to interaction with Amiodarone Chest CTA 03/30 Dr Constantine RUIZ-IV fluids (This form is maintained as a part of the permanent medical record) 2014 [employer]. All Rights Reserved Clarissa [email or web address] [not provided] MTDD
--- NOTE | 2019-04-04 09:10 | DIS ---
DATE OF ADMISSION: 04/02/2019 DATE OF DISCHARGE: 04/03/2019 DISCHARGE DIAGNOSES: 1. Healthcare-associated pneumonia, suspected gram-positive cocci, improved. 2. Coronary artery disease, chronic and stable. 3. Hypertension, stable. 4. Status post aortic valve replacement. CONSULTATION: Dr. Parker with Cardiology Service. PERTINENT LAB AND X-RAY FINDINGS: Troponin-I negative x3. CBC showed a white blood cell count ranged between 10.5 to 13.3, hemoglobin ranged between 12.[address] angiogram of the chest dated 03/30/2019, showed consolidation at the left lung base without evidence for pulmonary embolus. Portable chest x-ray dated 04/02/2019, showed opacification of the left lung base consistent with pneumonia. HOSPITAL COURSE: The patient was admitted to the telemetry unit after initially presenting with chest pain with chest imaging concerning for infiltrate of the left lung base. CT angiogram was performed of the chest showing consolidation of the left lung base with recent hospitalization in February 2019 for [id number] myocardial infarction. The patient was diagnosed with healthcare-associated pneumonia and initially placed on IV antibiotic therapy with Rocephin and Zithromax. The patient transitioned to Zosyn and vancomycin and continued on this regimen for the remainder of the hospital course. The patient received general pulmonary supportive management and overall clinically stabilized. The patient has remained afebrile over the last 48 hours with normalization of white blood cell count on 04/03/2019. The patient has tolerated regular oral intake with stable vital signs. I have examined the patient at the time of discharge and discussed followup instructions. The patient verbalized understanding and agreement ready for discharge on 04/03/2019. DISCHARGE MEDICATIONS: 1. Enteric-coated aspirin 325 mg p.o. q.h.s. 2. Lipitor 40 mg p.o. daily. 3. Coreg 3.125 mg p.o. b.i.d. 4. Levaquin 500 mg p.o. daily x7 days. 5. Lisinopril 5 mg p.o. b.i.d. FOLLOWUP: The patient may follow up with Dr. Pam De La Rosa within 7 days of discharge. The patient will follow up with Dr. Alex Parker in 2 to 3 weeks after discharge. CONDITION ON DISCHARGE: Stable. ACTIVITY: Ad-kaushik. DIET: Heart healthy. CODE STATUS: Full. DISPOSITION: To home on 04/03/2019. Job ID: [id number]
--- NOTE | 2019-04-06 21:19 | PQF ---
SAP Document Coordinator Crystal Reports Winform Viewer JATIN UREÑA CHARLES [id number] [facility]291 [id number] CLINICAL DOCUMENTATION CLARIFICATION FORM: POST DISCHARGE Addendum to original discharge summary date: ____ Late entry note date: __ DATE: 04-06-19 ATTN:Leon Matt Please exercise your independent, professional judgment in responding to the clarification form. Clinical indicators are provided on the bottom of this form for your review Can you please specify whether Sepsis is ruled in or ruled out during this encounter? Please check appropriate box(s) to clarify if the following diagnosis has been ruled in or ruled out: Sepsis [ ] Ruled in diagnosis [ ] Continue to treat [ ] Resolved [ x ] Ruled out diagnosis [ ] Cannot rule out diagnosis [ ] Other diagnosis please specify: [ ] Unable to determine In addition, please specify: Present on Admission (POA): [ ] Yes [ x ] No [ ] Unable to determine For continuity of documentation, please document condition throughout progress notes and discharge summary. Thank You. CLINICAL INDICATORS: H&P 06/[address] Loza The patient also reports cough over the last couple of days that is dry H&P 03/[address] Loza Blood pressure is 117/73, pulse is 97, respiratory rate 20, and oxygen saturation 94% on room air H&P 03/[address] Loza He had CT angiogram of the chest, which did not show any pulmonary embolism, but he had small left pleural effusion and dense consolidation of left lung base concerning for pneumonia H&P 03/[address] Loza He does have left sided pneumonia which is most likely the cause of his left sided chest pain PN 03/[address] Zapata Left lower lobe Pneumonia? Pneumococcal with? Sepsis PN 03/[address] Zapata Leukocytosis due to Pneumonia PN 04/[address] Zapata Cont to monitor-not stable for discharge due to persistent low grade fever DS 04/[address] Liu Healthcare Associated Pneumonia, suspected gram positve cocci, improved DS 04/[address] Liu The patient has remained afebrile over the last 48 hours with normalization of white blood cell count on 04/03/2019 Vital Signs: Respi: 22 H, 24 H (04/01) Xkrl=734.2 H (04/01) Laboratory: WBC=12.8, 13.3, Lactic Acid=0.9 RISK FACTOR: H&P 03/30-Pneumonia H&P 03/30-HTN TREATMENTS: PN 03/28- Increase Rocephine Dose to 2 g /daily PN 03/28-Avoid Azithromycin/ Levaquin due to interaction with Amiodarone Chest CTA 03/30 Dr Constantine RUIZ-IV fluids (This form is maintained as a part of the permanent medical record) 2014 [employer]. All Rights Reserved Clarissa [email or web address] [not provided] MTDD
== END 2019-04-03 17:00 | disposition home or self-care (01) | DRG 195 ==
LOC: ERS 20:39 → 2SW 22:35 → OBSVTOIN 04-02 09:26 → 2NO 04-02 11:52
PROVIDERS: ADMIT Internal Medicine; ATTEND Internal Medicine
PROC: 3E0234Z Introduction of Serum, Toxoid and Vaccine into Muscle, Percutaneous Approach (ICD-10-PCS; principal; 2019-03-31)
DX: J18.9 Pneumonia, unspecified organism (principal); I25.10 Atherosclerotic heart disease of native coronary artery without angina pectoris; I48.91 Unspecified atrial fibrillation; I10 Essential (primary) hypertension; E78.5 Hyperlipidemia, unspecified; G47.33 Obstructive sleep apnea (adult) (pediatric); Y95 Nosocomial condition; Z23 Encounter for immunization; Z95.1 Presence of aortocoronary bypass graft; Z95.2 Presence of prosthetic heart valve; Z79.82 Long term (current) use of aspirin; I25.2 Old myocardial infarction; Z79.899 Other long term (current) drug therapy
CPT/HCPCS: 36415; 71045; 71275; 80048; 82550; 83605; 83735; 84484; 85025; 93005; 94760; J0696; J1956; J2543; J3370; J3490; J7050

== ENCOUNTER 2019-05-05 16:17 | Observation (INO) | payer BC ==
[2019-05-05] MEDS ORDERED: Acetaminophen 500 MG TAB ONE (17:05)
[2019-05-05 17:06] LABS: #Eosinphils 0.1 thou/uL (0.0-0.7); #Neutrophils 13.1 thou/uL (1.40-6.50); %Basophils 0.2 % (0.0-1.0); %Eosinophils 0.5 % (0.0-10.0); %Lymphocytes 12.6 % (21.0-51.0); %Monocytes 6.2 % (0.0-10.0); %Neutrophils 80.7 % (42.0-75.0); Hemoglobin 13.2 g/dL (14.0-18.0); Mean Corpuscular HGB CONC 32.4 g/dL (32.0-36.0); Mean Corpuscular Hemoglobin 27.1 pg (27.0-31.0); Mean Corpuscular Volume 83.6 fL (78.0-98.0); Mean Platelet Volume 7.5 fL (7.4-10.4); Platelet Count 305 thou/uL (130-400); RBC Distribution Width 13.5 % (11.5-14.5); Red Blood Cell (RBC) Count 4.86 mill/uL (4.70-6.10); White Blood Cell (WBC) Count 16.3 thou/uL (4.8-10.8)
--- NOTE | 2019-05-05 17:15 | RAD ---
2 views of the chest: 05/05/2019 COMPARISON: 05/29/2014, 04/02/2019 HISTORY: Chest pain and shortness of breath FINDINGS: Midline sternotomy wires are present. There is evidence of prior mechanical valve replaceme nt. Stable enlargement of the cardiac silhouette. Mild blunting of the costophrenic angle on the right suggest possible small volume new pleural effusi on. There is a small left pleural effusion which appears improved when compared to 04/02/2019. Nonspecific increased linear density again noted in the lung bases, left greater than right. Aeration within the left base has improved since the most recent prior exam. IMPRESSION: Right basilar pleural and parenchymal opacity as detailed above, nonspecific and overall improved when compared to the prior examination.
[2019-05-05 17:45] LABS: ALT (SGPT) 36 U/L (8-55); AST (SGOT) 17 U/L (5-34); Alkaline Phosphatase 117 U/L (40-150); Anion Gap 16 mmol/L (10-20); BUN (Urea Nitrogen) 11 mg/dL (8.4-25.7); Bilirubin, Total 1.3 mg/dL (0.2-1.2); Calc. Creatinine Clearance 0 mL/min (70-130); Calcium 8.5 mg/dL (7.8-10.44); Carbon Dioxide 19 mmol/L (22-29); Chloride 104 mmol/L (98-107); Estimated GFR-MDRD 89; Globulin 2.8 g/dL (2.4-3.5); Glucose 117 mg/dL (70-105); Potassium 4.1 mmol/L (3.5-5.1); Protein, Total 6.8 g/dL (6.0-8.3); Sodium 135 mmol/L (136-145)
[2019-05-05 18:50] LABS: Bilirubin Negative (Negative); Blood, Urine Negative (Negative); Clarity Clear (Clear); Glucose, Urine (Dipstick) Normal (Negative); Leukocyte Negative Leu/uL (Negative); Nitrite Negative (Negative); Protein, Urine (Dipstick) Negative (Neg-Trace); Urobilinogen 3 mg/dL (Less than 2)
--- NOTE | 2019-05-05 19:01 | CT ---
CT ANGIOGRAM CHEST 05/05/19 COMPARISON: 03/30/19 HISTORY: Shortness of breath, assess for pulmonary embolism. TECHNIQUE: Axial CT imaging at 2.5 mm intervals through the chest with IV contrast using CT angiogram protocol w ith coronal and sagittal 3D reformatted imaging. FINDINGS: Midline sternotomy wires are noted. Evaluation of the imaged upper abdomen appears grossly unremarkable. Small left pleural effusion noted, decreased in volume when compared to the prior exam. There is a ne w trace right pleural effusion. There is a mechanical aortic valve noted. Coronary arterial calcifications is present. No axillary, mediastinal, or hilar lymphadenopathy. Stable prominent mediastinal fat noted. Distal pulmonary arterial branches are not optimally assessed secondary to motion. There is no eviden ce for central pulmonary arterial filling defect to suggest the presence of acute pulmonary arterial embolism. There is partial consolidation/collapse of the left lower lobe. Aeration within the left lower lobe h as improved since the prior exam. Left upper lobe appears grossly unremarkable, improved in aeration when compared to the prior examination as well. There is partial consolidation/collapse of the right lower lobe posteriorly/inferiorly, new. There is no pneumothorax evident on either side. Review of the osseous structures demonstrates no acute findings. IMPRESSION: 1. No evidence for pulmonary arterial embolism. 2. Postoperative changes as detailed above. 3. Bibasilar pleural and parenchymal opacity as detailed above, new on the right and improved on the left. A degree of edema or infectious pneumonitis cannot be excluded in the proper clinical sett ing. POS: BRITTNI
[2019-05-05] MEDS ORDERED: Cefepime 2 GM VIAL ONE (19:26)
[2019-05-05] MEDS ORDERED: Acetaminophen 650 MG Suppository PR PRN (20:31)
[2019-05-05] MEDS ORDERED: Ondansetron PF 4 MG/2 ML Vial IVP PRN (20:31)
[2019-05-05] MEDS ORDERED: Ondansetron ODT 4 MG TAB PO PRN (20:31)
[2019-05-05] MEDS ORDERED: Acetaminophen 325 MG TAB PO PRN (20:31)
[2019-05-05] MEDS ORDERED: Aspirin 325 mg Enteric Coated Tablet PO SCH (21:00)
[2019-05-05 21:22] VITALS: BMI 34.0
--- NOTE | 2019-05-05 21:36 | HP ---
PRIMARY CARE PHYSICIAN: TIME OF EVALUATION: 8:20 p.m. CHIEF COMPLAINT: Chest pain and fever. HISTORY OF PRESENT ILLNESS: A 54-year-old male patient with past medical history of recent CABG done, myocardial infarction, hypertension, came to the hospital after having chest pain that was dull, intermittent, associated with cough and fever, started insidiously and has been gradually getting worse. REVIEW OF SYSTEMS: CONSTITUTIONAL: The patient had fever, chills, generalized weakness. RESPIRATORY: Cough with scant sputum production, shortness of breath. CARDIOVASCULAR: Chest pain. No palpitation. GASTROINTESTINAL: No nausea, vomiting, diarrhea, or abdominal pain. MACHINE FORMER: No dizziness, headache, or feeling lightheaded. GENITOURINARY: No burning on urination. EXTREMITIES: No leg swelling. All other systems were reviewed and negative except for the findings mentioned above. PAST MEDICAL HISTORY: As mentioned in HPI. PAST SURGICAL HISTORY: As mentioned in HPI. FAMILY HISTORY: Reviewed, noncontributory to current presentation PSYCHIATRIC HISTORY: No previous psych history. SOCIAL HISTORY: The patient drinks socially alcohol on the weekends. No drugs. The patient smokes on a daily basis. Chews tobacco. ALLERGIES: NO KNOWN DRUG ALLERGIES. REPORTED MEDICATIONS: 1. Lisinopril. 2. Atorvastatin. 3. Carvedilol. PHYSICAL EXAMINATION: VITAL SIGNS: On presentation, blood pressure 117/72 with heart rate 92, respiratory rate 26, temperature 100.6, pain 5, oxygen saturation 95% on room air. GENERAL: The patient is alert and oriented, not in acute distress. HEENT: Eyes, normal conjunctivae. Moist oral mucosa. Anicteric. No JVD. RESPIRATORY: Bilateral air entry. Scattered rales. No wheezes. Symmetric expansion. CARDIOVASCULAR: Normal rate regular rhythm. No murmurs. No gallop. No edema. ABDOMEN: Soft. Normal bowel sounds. MUSCULOSKELETAL: Baseline range of motion and strength. SKIN: Warm, intact. No pallor. No rash. No redness. Capillary refill seems to be intact. NEUROLOGIC: No evidence of any new focal weakness. Cranial nerves seems to be intact. PSYCH: The patient is in good mood. No anxiety. Optimal judgment. EKG normal sinus rhythm with a rate of 91, MD 164, QRS 100, QT corrected 479, possible left atrial enlargement. Chest CTA was done. The patient has no evidence of pulmonary embolism. Possibility changes. Bibasilar pleural-parenchymal opacity as detailed above, new on the right and improved on the left. Review of edema of infectious pneumonitis cannot be excluded in the proper clinical setting. LABORATORY DATA: Labs were reviewed. The patient has white count 16.3, hemoglobin 13.2, MCV 83.6, platelet count 305. D-dimer is 2.94. Chemistry; sodium 135, potassium 4.1, chloride 104, carbon dioxide 19, anion gap 16, BUN 11, creatinine 0.89, GFR 89, glucose 117, lactic acid 1.4, calcium 9.5, total bilirubin 1.3. LFTs were negative. Urine done was negative. ASSESSMENT AND PLAN: The patient will be placed in the hospital with following medical problems: 1. Bilateral lower lobe pneumonia. The patient has associated elevated white count and fever. The patient has been started on antibiotics. He is at risk for multiple drug-resistant organisms. He was in the hospital recently. For that reason, the patient was started on vancomycin and cefepime. We will follow cultures. We will adjust treatment as per sensitivity. 2. History of coronary artery disease, status post coronary artery bypass grafting due to x1 vessel. The patient had been recovering well. This problem is chronic and seems to be stable at this point. 3. Elevated D-dimer. The patient has normal CT angio. No further intervention for this problem. 4. Hyponatremia. Sodium 135, this is minimal. No need for any acute intervention at this point. 5. Hyperglycemia, glucose 117, might be due to acute distress. The patient denies any history of diabetes. We will monitor. No need for any acute intervention at this point. 6. Deep venous thrombosis prophylaxis. 7. Controlled hypertension, reconcile home medications and treat accordingly. Job ID: [id number] [facility]
[2019-05-05 22:00] LABS: Troponin I Less than 0.010 ng/mL (< 0.028)
[2019-05-05] MEDS: Lisinopril 5 MG TAB PO SCH (22:24)
[2019-05-06 00:21] LABS: Troponin I Less than 0.010 ng/mL (< 0.028)
[2019-05-06] MEDS ORDERED: Cefepime 2 GM in Sodium Chloride 0.9% 100 ML IVPB SCH (06:00)
[2019-05-06 08:01] LABS: #Eosinphils 0.2 thou/uL (0.0-0.7); #Lymphocytes 1.4 thou/uL (1.20-3.40); #Monocytes 0.9 thou/uL (0.11-0.59); %Basophils 0.1 % (0.0-1.0); %Eosinophils 1.5 % (0.0-10.0); %Lymphocytes 13.4 % (21.0-51.0); %Monocytes 8.5 % (0.0-10.0); %Neutrophils 76.5 % (42.0-75.0); Hemoglobin 12.9 g/dL (14.0-18.0); Mean Corpuscular HGB CONC 32.1 g/dL (32.0-36.0); Mean Corpuscular Hemoglobin 26.9 pg (27.0-31.0); Mean Platelet Volume 7.5 fL (7.4-10.4); Platelet Count 280 thou/uL (130-400); RBC Distribution Width 13.5 % (11.5-14.5); Red Blood Cell (RBC) Count 4.79 mill/uL (4.70-6.10); White Blood Cell (WBC) Count 10.4 thou/uL (4.8-10.8)
[2019-05-06 08:21] LABS: Anion Gap 12 mmol/L (10-20); BUN (Urea Nitrogen) 10 mg/dL (8.4-25.7); Calc. Creatinine Clearance 162 mL/min (70-130); Calcium 8.7 mg/dL (7.8-10.44); Carbon Dioxide 21 mmol/L (22-29); Chloride 107 mmol/L (98-107); Estimated GFR-MDRD Greater than 90; Glucose 104 mg/dL (70-105); Potassium 3.9 mmol/L (3.5-5.1); Sodium 136 mmol/L (136-145)
[2019-05-06] MEDS ORDERED: Enoxaparin Sodium 40 MG/0.4 ML SYRINGE SC SCH (09:00)
[2019-05-06] MEDS ORDERED: Atorvastatin Calcium 40 MG TAB PO SCH (09:00)
[2019-05-06] MEDS: Lisinopril 5 MG TAB PO SCH (09:10)
[2019-05-06] MEDS: Carvedilol 3.125 MG TAB PO SCH ×2 (09:10→16:20)
--- NOTE | 2019-05-06 13:22 | PDOC.PN ---
- Subjective Encounter Start Date: 05/06/19 Encounter Start Time: 10:15 Subjective: Patient examined. Is in no apparent distress -: Reports breathing has improved. -: Denies overnight events - Objective Resuscitation Status - Order Detail: 05/05/19 20:31 Resuscitation Status Routine Resuscitation Status: FULL: Full Resuscitation Vital Signs & Weight: Vital Signs (12 hours) Temp Pulse Resp BP Pulse Ox 05/06/19 11:36 98.1 F 70 24 H 117/63 93 L 05/06/19 07:52 97.3 F L 70 24 H 160/70 H 93 L 05/06/19 04:41 98 F 76 24 H 115/60 93 L Weight Weight 111.402 kg I&O: 05/05/19 05/06/19 05/07/19 06:59 06:59 06:59 Intake Total 1320 240 Output Total 1075 Balance 245 240 Result Diagrams: 05/06/19 07:49 05/06/19 07:49 Phys Exam - Physical Examination HEENT: PERRLA, moist MMs Neck: no nodes, no JVD Respiratory: no wheezing, clear to auscultation bilateral decreased BS at bases Cardiovascular: RRR, no significant murmur Gastrointestinal: soft Musculoskeletal: no edema, pulses present Neurological: non-focal, normal sensation Lymphatic: no nodes Psychiatric: normal affect, A&O x 3 Skin: cap refill <2 seconds Dx/Plan (1) CAD (coronary artery disease) Code(s): I25.10 - ATHSCL HEART DISEASE OF [place] CORONARY ARTERY W/O ANG PCTRS Status: Chronic (2) HAP (hospital-acquired pneumonia) Code(s): J18.9 - PNEUMONIA, UNSPECIFIED ORGANISM; Y95 - NOSOCOMIAL CONDITION Status: Acute (3) Hypertension Code(s): I10 - ESSENTIAL (PRIMARY) HYPERTENSION Status: Chronic (4) Allergic rhinitis Code(s): J30.9 - ALLERGIC RHINITIS, UNSPECIFIED Status: Chronic (5) YASSINE (obstructive sleep apnea) Code(s): G47.33 - OBSTRUCTIVE SLEEP APNEA (ADULT) (PEDIATRIC) Status: Chronic - Plan cont current plan of care, continue antibiotics, respiratory therapy, incentive spirometry, out of bed/ambulate, DVT proph w/heparin Continue antibiotics and reassess in AM -: Continue home HTN meds, trend -: Recheck labs in AM -: If he continues to improve, may consider dc home tomorrow -: with close PCP f/u * . Review of Systems - Review of Systems Respiratory: Shortness of Breath, SOB with Excertion - Medications/Allergies Allergies/Adverse Reactions: Allergies Allergy/AdvReac Type Severity Reaction Status Date / Time No Known Allergies Allergy Verified 03/30/19 23:30 Medications: Current Medications Acetaminophen (Tylenol) 650 mg PO Q4H PRN PRN Reason: Headache/Fever/Mild Pain (1-3) Acetaminophen (Tylenol) 650 mg WA Q4H PRN PRN Reason: Headache/Fever/Mild Pain (1-3) Aspirin (Ecotrin) 325 mg PO HS [facility] Last Admin: 05/05/19 22:24 Dose: 325 mg Atorvastatin Calcium (Lipitor) 40 mg PO DAILY [facility] Last Admin: 05/06/19 09:10 Dose: 40 mg Carvedilol (Coreg) 3.125 mg PO BID-[facility] Last Admin: 05/06/19 09:10 Dose: 3.125 mg Enoxaparin Sodium (Lovenox) 40 mg SC 0900 [facility] Last Admin: 05/06/19 09:11 Dose: 40 mg Cefepime HCl 2 gm/ Sodium (Chloride) 100 mls @ 200 mls/hr IVPB 0600,1800 [facility] Last Admin: 05/06/19 06:09 Dose: 100 mls Lisinopril (Zestril) 5 mg PO BID [facility] Last Admin: 05/06/19 09:10 Dose: 5 mg Ondansetron HCl (Zofran Odt) 4 mg PO Q6H PRN PRN Reason: Nausea/Vomiting Ondansetron HCl (Zofran) 4 mg IVP Q6H PRN PRN Reason: Nausea/Vomiting
[2019-05-06 17:22] VITALS: BP 115/62; TEMP 98.3
== END 2019-05-06 18:16 | disposition home or self-care (01) ==
LOC: ERS 16:17 → 2SW 18:51
PROVIDERS: ADMIT Internal Medicine; ATTEND Internal Medicine
DX: J18.1 Lobar pneumonia, unspecified organism (principal); I25.10 Atherosclerotic heart disease of native coronary artery without angina pectoris; I10 Essential (primary) hypertension; J30.9 Allergic rhinitis, unspecified; G47.33 Obstructive sleep apnea (adult) (pediatric); R73.9 Hyperglycemia, unspecified; E87.1 Hypo-osmolality and hyponatremia; I25.2 Old myocardial infarction; F17.220 Nicotine dependence, chewing tobacco, uncomplicated; Z95.1 Presence of aortocoronary bypass graft; Z79.82 Long term (current) use of aspirin; Z79.899 Other long term (current) drug therapy
CPT/HCPCS: 36415; 71046; 71275; 80048; 80053; 81003; 83605; 84484; 85025; 85379; 87040; 93005; 96361; 96365; 96366; 96367; 96372; G0378; J0692; J1650; J3370; J3490; J7050; Q9966

== ENCOUNTER 2019-10-19 10:47 | Emergency (ER) | payer BC | END 2019-10-19 12:05 | disposition home or self-care (01) | LOC: ERS 10:47 | DX: I10 Essential (primary) hypertension (principal); R51 Headache; I25.2 Old myocardial infarction; Z79.82 Long term (current) use of aspirin; Z79.899 Other long term (current) drug therapy; Z79.891 Long term (current) use of opiate analgesic | CPT/HCPCS: 99283 ==

== ENCOUNTER 2025-05-23 08:07 | Day surgery (SDC) | payer BC ==
[2025-05-21 12:09] VITALS: BMI 40.6
[2025-05-23] MEDS ORDERED: PROPOFOL 40 ML ONE (09:16)
[2025-05-23] MEDS ORDERED: Ropivacaine 0.5% HCl/PF (150 MG/30 ML VIAL) ONE (09:17)
[2025-05-23] MEDS ORDERED: CEFAZOLIN 2 GM VIAL ONE (09:18)
[2025-05-23] MEDS ORDERED: fentaNYL PF 100 MCG/2 ML SYRINGE ONE (09:22)
[2025-05-23] MEDS ORDERED: Ketorolac Tromethamine 30 MG (1 mL) VIAL ONE (09:30)
[2025-05-23] MEDS ORDERED: Ondansetron PF 4 MG/2 ML Vial ONE (09:30)
== END 2025-05-23 12:58 | disposition home or self-care (01) ==
LOC: SDC 08:07
PROVIDERS: ATTEND Orthopaedic Surgery
PROC: 01N40ZZ Release Ulnar Nerve, Open Approach (ICD-10-PCS; principal; 2025-05-23)
PROC: 01N50ZZ Release Median Nerve, Open Approach (ICD-10-PCS; principal; 2025-05-23)
DX: G56.03 Carpal tunnel syndrome, bilateral upper limbs (principal); G56.23 Lesion of ulnar nerve, bilateral upper limbs; I10 Essential (primary) hypertension; E78.5 Hyperlipidemia, unspecified; G47.33 Obstructive sleep apnea (adult) (pediatric); Z79.899 Other long term (current) drug therapy; Z87.891 Personal history of nicotine dependence
CPT/HCPCS: J0169; J0665; J1100; J1885; J2405; J2704; J2795

== ENCOUNTER 2025-06-06 05:49 | Day surgery (SDC) | payer BC ==
[2025-06-06] MEDS ORDERED: SUCCINYLCHOLINE/SOD CL,ISO/PF 200 MG/10 ML SYRINGE FS ONE (06:39)
[2025-06-06] MEDS ORDERED: Rocuronium Bromide 10 MG/ML (10ML VIAL) ONE (06:39)
[2025-06-06] MEDS ORDERED: fentaNYL PF 100 MCG/2 ML SYRINGE ONE ×2 (06:39→08:18)
[2025-06-06] MEDS ORDERED: PROPOFOL 20 ML ONE ×2 (06:39→07:50)
[2025-06-06] MEDS ORDERED: Ketorolac Tromethamine 30 MG (1 mL) VIAL ONE ×2 (06:48→07:37)
[2025-06-06] MEDS ORDERED: CEFAZOLIN 2 GM VIAL ONE (06:48)
[2025-06-06] MEDS ORDERED: Acetaminophen 500 MG TAB ONE (06:48)
[2025-06-06] MEDS ORDERED: Bupivacaine 0.25% HCL 30 ML VIAL ONE (06:58)
[2025-06-06] MEDS ORDERED: Lidocaine 1% PF 5 ML VIAL ONE (06:58)
[2025-06-06] MEDS ORDERED: Ondansetron PF 4 MG/2 ML Vial ONE (07:37)
[2025-06-06] MEDS ORDERED: CEFAZOLIN 1 GM VIAL ONE (07:38)
[2025-06-06] MEDS ORDERED: SUGAMMADEX SODIUM 200 MG/2 ML VIAL ONE (07:43)
== END 2025-06-06 11:10 | disposition home or self-care (01) ==
LOC: SDC 05:49
PROVIDERS: ATTEND Specialist
PROC: 01N50ZZ Release Median Nerve, Open Approach (ICD-10-PCS; principal; 2025-06-06)
PROC: 0JBF0ZZ Excision of Left Upper Arm Subcutaneous Tissue and Fascia, Open Approach (ICD-10-PCS; principal; 2025-06-06)
DX: D17.22 Benign lipomatous neoplasm of skin and subcutaneous tissue of left arm (principal); G56.03 Carpal tunnel syndrome, bilateral upper limbs; G56.23 Lesion of ulnar nerve, bilateral upper limbs; G47.33 Obstructive sleep apnea (adult) (pediatric); I10 Essential (primary) hypertension; Z95.1 Presence of aortocoronary bypass graft; Z79.82 Long term (current) use of aspirin; Z79.899 Other long term (current) drug therapy
CPT/HCPCS: 88304; A6223; J0169; J0665; J0690; J1100; J1885; J2405; J2704

== ENCOUNTER 2025-08-29 16:50 | Inpatient (IN) | payer BC ==
[2025-08-29 19:00] VITALS: BMI 39.7
[2025-08-29] MEDS ORDERED: Melatonin 3 MG TAB PO PRN (21:29)
[2025-08-29] MEDS ORDERED: hydrALAZINE 20 MG/ML VIAL SLOW IVP PRN (21:29)
[2025-08-29] MEDS ORDERED: Fioricet 325/50/40 mg Tablet PO PRN (21:29)
[2025-08-29] MEDS ORDERED: Ondansetron PF 4 MG/2 ML Vial IVP PRN (21:29)
[2025-08-29] MEDS: FLU (Fluarix Triv) 25-26 (6MOS UP)/PF 45 MCG/0.5 ML Syringe IM ONE (22:06)
[2025-08-29] MEDS: Aspirin 81 mg Enteric Coated Tablet PO SCH (22:06)
[2025-08-30 04:08] LABS: #Basophils 0.05 10x3/uL (0.0-0.2); #Eosinophils 0.41 10x3/uL (0.0-0.7); #Monocytes 0.64 10x3/uL (0.11-0.59); #Neutrophils 6.09 10x3/uL (1.40-6.50); %Basophils 0.5 % (0.0-1.0); %Eosinophils 4.3 % (0.0-10.0); %Lymphocytes 24.6 % (21.0-51.0); %Monocytes 6.6 % (0.0-10.0); %Neutrophils 63.3 % (42.0-75.0); Hematocrit 43.6 % (42.0-52.0); Hemoglobin 14.3 g/dL (14.0-18.0); Mean Corpuscular Hemoglobin 29.1 pg (27.0-31.0); Mean Corpuscular Volume 88.6 fL (78.0-98.0); Platelet Count 258 10x3/uL (130-400); Red Blood Cell (RBC) Count 4.92 mill/uL (4.70-6.10); White Blood Cell (WBC) Count 9.63 10x3/uL (4.8-10.8)
[2025-08-30 04:28] LABS: Anion Gap 16 mmol/L (10-20); BUN (Urea Nitrogen) 13 mg/dL (8.4-25.7); Calc. Creatinine Clearance 180 mL/min (70-130); Calcium 8.5 mg/dL (7.8-10.44); Carbon Dioxide 22 mmol/L (22-29); Cardiac Risk 3.5 (Less than 4.5); Chloride 108 mmol/L (98-107); Cholesterol 110 mg/dl (< 200 Desired); Glucose 116 mg/dL (70-105); HDL Cholesterol 31 mg/dL (>60 Neg Risk); LDL Cholesterol, Calculated 54 mg/dL; Magnesium 1.9 mg/dL (1.6-2.6); Potassium 3.8 mmol/L (3.5-5.1); Sodium 142 mmol/L (136-145); Triglycerides 125 mg/dL (Less than 150)
[2025-08-30] MEDS: Aspirin 81 mg Enteric Coated Tablet PO SCH (09:17)
[2025-08-31 04:04] LABS: #Basophils 0.04 10x3/uL (0.0-0.2); #Eosinophils 0.48 10x3/uL (0.0-0.7); #Monocytes 0.64 10x3/uL (0.11-0.59); #Neutrophils 7.01 10x3/uL (1.40-6.50); %Basophils 0.4 % (0.0-1.0); %Eosinophils 4.6 % (0.0-10.0); %Lymphocytes 20.5 % (21.0-51.0); %Monocytes 6.2 % (0.0-10.0); %Neutrophils 67.5 % (42.0-75.0); Hematocrit 43.9 % (42.0-52.0); Hemoglobin 14.5 g/dL (14.0-18.0); Mean Corpuscular Hemoglobin 28.9 pg (27.0-31.0); Mean Corpuscular Volume 87.5 fL (78.0-98.0); Platelet Count 246 10x3/uL (130-400); Red Blood Cell (RBC) Count 5.02 mill/uL (4.70-6.10); White Blood Cell (WBC) Count 10.38 10x3/uL (4.8-10.8)
[2025-08-31 04:20] LABS: Anion Gap 13 mmol/L (10-20); BUN (Urea Nitrogen) 13 mg/dL (8.4-25.7); Calc. Creatinine Clearance 185 mL/min (70-130); Calcium 8.7 mg/dL (7.8-10.44); Carbon Dioxide 24 mmol/L (22-29); Chloride 107 mmol/L (98-107); Glucose 124 mg/dL (70-105); Potassium 4.0 mmol/L (3.5-5.1); Sodium 140 mmol/L (136-145)
[2025-08-31] MEDS: Enoxaparin 40 MG (0.4 mL) SYRINGE SC SCH (09:06)
[2025-08-31] MEDS: Acetaminophen 325 MG TAB PO PRN (09:11)
[2025-08-31 11:37] VITALS: BP 126/83; TEMP 97.8
== END 2025-08-31 12:28 | disposition home or self-care (01) | DRG 149 ==
LOC: 2SE 18:02 → OBSVTOIN 08-30 15:44
PROVIDERS: ADMIT Internal Medicine; ATTEND Internal Medicine
DX: R42 Dizziness and giddiness (principal); I50.32 Chronic diastolic (congestive) heart failure; I25.10 Atherosclerotic heart disease of native coronary artery without angina pectoris; I11.0 Hypertensive heart disease with heart failure; E78.5 Hyperlipidemia, unspecified; Z98.890 Other specified postprocedural states; Z95.1 Presence of aortocoronary bypass graft; G47.33 Obstructive sleep apnea (adult) (pediatric); E66.01 Morbid (severe) obesity due to excess calories; Z68.39 Body mass index [BMI] 39.0-39.9, adult; Z79.899 Other long term (current) drug therapy; Z79.82 Long term (current) use of aspirin
CPT/HCPCS: 36415; 70551; 80048; 80061; 83036; 83735; 84443; 85025; 90656; 93306; G0378; J1650